=== PATIENT | female | born 1955 | race Caucasian/White ===

== ENCOUNTER → 2020-12-23 12:34 | Outpatient (CLI) | payer OTHER, BC, SELFPAY ==
--- NOTE | ~2020-12-23 | MM_ITS ---
EXAMINATION: MM screening tonny BI w ema HISTORY: Screening mammogram TECHNIQUE: Craniocaudal and mediolateral oblique 3-D tomosynthesis images were obtained and synthetic 2-D images were generated. CAD analysis was submitted and interpreted. COMPARISON: 08/07/2005 bilateral digital screening mammogram BREAST PARENCHYMAL COMPOSITION: There are scattered areas of fibroglandular density. FINDINGS: There is no evidence of suspicious mass, calcification, or architectural distortion to sugg est malignancy in either breast. There has been no suspicious interval change. IMPRESSION: 1. No mammographic evidence of malignancy. 2. Recommend routine screening mammography in one year. BI-RADS Category 1: Negative Reviewed, dictated and finalized at location A.
== END ==
PROVIDERS: PCP Internal Medicine; Visit Provider Obstetrics & Gynecology
DX: Z12.31 Encounter for screening mammogram for malignant neoplasm of breast (principal)
CPT/HCPCS: 77063; 77067

== ENCOUNTER 2021-07-29 18:56 | Emergency (ER) | payer OTHER, BC, SELFPAY ==
--- NOTE | ~2021-07-29 | CT_ITS ---
EXAMINATION: CT abdomen pelvis w con DATE: 07/30/2021 00:31 INDICATION: Lower abdominal pain. Lightheadedness. TECHNIQUE: Computed tomography (CT) of the abdomen and pelvis was performed without intravenous contr ast. The dose-length product was 270.98 mGy-cm. Automated exposure control and iterative reconstructi on technique were employed. COMPARISON: None. FINDINGS: Lung bases are unremarkable. There is a small hiatal hernia with mild thickening of the dis luli esophagus. Fatty infiltration of the liver. There is mild thickening of the distal ileum and cecu m. The liver, spleen, pancreas, adrenal glands and kidneys are unremarkable. Gallbladder is present. Bladder is unremarkable. Nonobstructive bowel gas pattern. No significant vascular abnormality. No ly mphadenopathy. No free air or free fluid. Status post hysterectomy. Normal appendix. IMPRESSION: 1. Mild thickening of the terminal ileum and proximal colon, suspicious for enterocolitis which may b e infectious or inflammatory. 2: Small hiatal hernia with thickening of the distal esophagus, suspicious for esophagitis, possibly secondary to reflux. Reviewed, dictated and finalized at location B. 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 Mild thickening of the terminal ileum and proximal colon, suspicious for ent erocolitis which may be infectious or inflammatory. 2: Small hiatal hernia with thickening of the distal esophagus, suspicious for esophagitis, possibly secondary to reflux.
[2021-07-29 19:02] VITALS: BP 127/73; PULSE 115; RESP 20; TEMP 37.1; O2SAT 99
[2021-07-29] MEDS: ONDANSETRON INJ 4 MG/2 ML VIAL IV PUSH (23:32)
[2021-07-29] MEDS: SODIUM CHLORIDE 0.9% IV 1,000 ML 999 ML IV CONT (23:32)
[2021-07-29 23:41] LABS: Basophils Percent Auto 0.2 % (0.2-1.2); Hematocrit 39.2 % (37.0-47.0); Immature Granulocyte Absolute 0.03 K/mm3 (0.00-0.031); Immature Granulocyte Percent A 0.3 % (0-0.5); Lymphocytes Absolute Auto 0.44 K/mm3 (0.9-3.2); Mean Corpuscular HGB Conc 33.2 g/dl (32-36); Mean Corpuscular Hemoglobin 30.5 pg (26-34); Mean Platelet Volume 10.6 fl (7.4-10.4); Monocytes Absolute Auto 0.3 K/mm3 (0.1-0.6); Monocytes Percent Auto 3.4 % (2.6-8.5); Neutrophils Percent Auto 91.1 % (45.5-73.1); Platelet Count Result 160 k/mm3 (150-375); Red Blood Count 4.26 M/mm3 (4.2-5.4); Red Cell Distribution Width 14.2 % (11.5-14.5); White Blood Count 8.8 K/mm3 (4.5-10.0)
[2021-07-29 23:53] LABS: Alanine Aminotransferase 25 U/L (4-35); Albumin Level 4.2 g/dL (3.5-5.1); Alkaline Phosphatase 64 U/L (38-126); Anion Gap 12 mmol/L (8-16); Aspartate Amino Transferase 26 U/L (14-36); Bilirubin,Total 0.8 mg/dL (0.2-1.3); Blood Urea Nitrogen 18 mg/dL (7-17); Calcium 9.3 mg/dL (8.4-10.2); Carbon Dioxide 23 mmol/L (22-30); Chloride 101 mmol/L (98-107); Estimated CRCL calculation 65 ml/min; Estimated Glomerular Filt Rate > 60; Glucose 118 mg/dL (65-110); Lactic Acid Reflex 1.1 mmol/L (0.7-2.1); Lipase 28 U/L (23-300); Magnesium 1.8 mg/dL (1.6-2.3); Potassium 3.4 mmol/L (3.4-5.0); Sodium 136 mmol/L (137-145)
--- NOTE | 2021-07-30 00:46 | ED.GENADULT ---
HPI - General Adult General Chief complaint: Nausea/Vomiting/Diarrhea Stated complaint: Vomiting,diarrhea,Low Bp Time Seen by Provider: 07/29/21 23:10 History of Present Illness HPI narrative: Patient is a 65-year-old female presents to emergency department with chief complaint of nausea and vomiting and diarrhea. Patient states that she is feeling lightheaded has had several episodes of nausea and vomiting reports that she was unable to keep fluids down. Patient states that she also is feeling lightheaded with this. Patient states that she has some discomfort throughout her abdomen reports that its not improved by anything and reports that its not worsened by any. Related Data Home Medications Medication Instructions Recorded Confirmed aspirin 81 mg tablet,delayed 81 mg PO DAILY 12/12/19 06/23/21 release cetirizine 10 mg tablet 10 mg PO DAILY 12/12/19 06/23/21 fluticasone propionate 50 1 spray NASAL DAILY 12/12/19 06/23/21 mcg/actuation nasal spray,suspension olopatadine 0.6 % nasal spray 2 spray NASAL BID 12/12/19 06/23/21 omega 4-rai-bgc-fish oil 60 mg-90 1 cap PO DAILY 08/18/20 06/23/21 mg-500 mg capsule calcium 600 mg-D3 800 unit-mag11 1 tablet PO DAILY 12/15/20 06/23/21 50 lq-ygzp-lbdplk-daniel-s.borat tablet carboxymethylcellulose 1 1 drp EACH EYE BID 12/15/20 06/23/21 %-glycerin 0.9 % eye gel drops cholecalciferol (vitamin D3) 50 50 mcg PO DAILY 12/15/20 06/23/21 mcg (2,000 unit) capsule eye lubricant combination no.1 2 drp OPHTHALMIC (EYE) 12/15/20 06/23/21 %-0.9 %-1.8 % drops lifitegrast 5 % eye drops in a 1 drp EACH EYE Q12H 12/15/20 06/23/21 dropperette metronidazole 1 % topical cream 1 applic TOPICAL DAILY 12/15/20 06/23/21 triamcinolone acetonide 0.1 % 1 applic TOPICAL BID 12/15/20 06/23/21 topical cream vit cap PO 06/23/21 06/23/21 C,E,zinc,Ry-tgvqr-5-lutein-zeaxanthin 250 mg-2.5 mg-0.5 mg capsule Allergies Allergy/AdvReac Type Severity Reaction Status Date / Time Penicillins Allergy Severe Vomiting Verified 06/23/21 10:57 Review of Systems Review of Systems: A 10 system review of systems was completed on the patient and is negative except for what is stated in the HPI. Nursing and ancillary documentation was reviewed. PMFSH Past Medical History Medical History Cataract History of miscarriage Hyperlipidemia Optic neuritis Porphyria Thrombocytopenia Surgical History Surgical History H/O dilation and curettage X5 H/O: hysterectomy History of colposcopy Family History Family History Father Cerebrovascular accident Sibling Cerebrovascular accident Mother Acute myocardial infarction Other Hypertension Social History Social History Smoking packs per day: 0.5 Smoking cigarettes per day: 10.0 Years smoked: 4 Smoking pack-years: 2.00 Smoking status: Former smoker Tobacco type: cigarettes Second hand tobacco smoke exposure: No Smoking end date: 08/18/78 Alcohol intake: current Alcohol use details: Social Substance use: never Substance use type: does not use Exam Narrative: GENERAL: Well-appearing, well-nourished, and in no acute distress. HEAD: Normocephalic, atraumatic. EYES: PERRLA and EOMI. ENT: Nares clear, no rhinorrhea or epistaxis. Mucous membranes moist. NECK: Supple. CHEST: Clear to auscultation. No respiratory distress. HEART: Regular rate and rhythm. No murmur heard. Normal peripheral pulses. ABDOMEN: Soft, nontender, nondistended, normal active bowel sounds. EXTREMITIES: Normal range of motion. No edema. SKIN: Warm, dry, no rash. NEURO: No focal deficits. Alert and oriented x3. PSYCH: Normal mood and affect. Course Vital Signs Vital signs: Vital
[2021-07-30 01:00] VITALS: BP 113/59; PULSE 98; RESP 16; O2SAT 98
[2021-07-30 01:27] LABS: Add Urine Microscopic? YES; Appearance Urine Clear (Clear); Bacteria Urine Trace /hpf; Bilirubin Urine Negative (Negative); Blood Urine Negative (Negative); Color Urine Yellow (Yellow); Glucose Urine UA Negative (Negative); Ketones Urine 1+ mg/dL (Negative); Leukocyte Esterase Ur Negative LEU/UL (Negative); Mucus Urine Few /lpf; Nitrate Urine Negative (Negative); Protein Urine Negative (Negative); Squamous Epithelial Cell Urine Rare /hpf (Few); Urobilinogen Urine Negative mg/dL (<2.0); WBC Urine 0-3 /hpf
[2021-07-30 01:35] LABS: Specific Grav Ur 1.058 (1.001-1.035)
[2021-07-30] MEDS: CIPROFLOXACIN 500 MG TAB PO (02:40)
[2021-07-30] MEDS: metroNIDAZOLE 250 MG TABLET 500 MG PO (02:40)
[2021-07-30 02:56] VITALS: BP 121/62; PULSE 75; RESP 16; O2SAT 100
== END 2021-07-30 02:57 | disposition home or self-care (01) ==
PROVIDERS: Emergency Provider Emergency Medicine; PCP Internal Medicine
DX: E78.5 Hyperlipidemia, unspecified (principal); E80.20 Unspecified porphyria; Z87.891 Personal history of nicotine dependence; Z79.82 Long term (current) use of aspirin; K52.9 Noninfective gastroenteritis and colitis, unspecified
CPT/HCPCS: 36415; 74177; 80053; 81001; 83605; 83690; 83735; 85025; 96361; 96374; 99284; A9270; J2405; J7030; Q9967

== ENCOUNTER 2021-09-17 00:46 | Day surgery (SDC) | payer OTHER, BC, SELFPAY ==
[2021-09-02 15:11] VITALS: BMI 25.4
[2021-09-17 06:28] VITALS: BP 136/72; PULSE 72; RESP 18; TEMP 36.1; O2SAT 99; BMI 25.3
[2021-09-17] MEDS: LACTATED RINGERS 1,000 ML 150 ML IV CONT (06:37)
--- NOTE | 2021-09-17 07:22 | WPDGICN ---
Assessment and Plan Assessment and plan (1) Encounter for screening colonoscopy: Code(s): Z12.11 - Encounter for screening for malignant neoplasm of colon Status: Acute Assessment and Plan: Patient presents today for screening colonoscopy. Appears to be at average risk for colon polyps. Further recommendations will be given after colonoscopy. GI Consult Note Consult date/time: 09/17/21 07:22 HPI: Zainab Stone is a 65 year old female Presents for neoplasia screening colonoscopy. Patient's current weight appetite and bowel movements are normal. She denies abdominal pain. She has had no bleeding. Family history noncontributory. Last colonoscopy 12 years ago was unremarkable. Patient does report gastroenteritis requiring ER visit in June. She has subsequently with resolved. She presents today for neoplasia screening colonoscopy. Review of Systems Review of Systems: All systems reviewed & are unremarkable except as noted in HPI and below PMFSH Past Medical History Medical History Cataract Essential (primary) hypertension Gastroesophageal reflux disease History of miscarriage x5 Hyperlipidemia Hypothyroidism (acquired) Hypothyroidism, unspecified Intermittent acute porphyria syndrome Optic neuritis Osteopenia Rosacea Thrombocytopenia Vaginal delivery x1 Surgical History Surgical History H/O dilation and curettage X5 H/O: hysterectomy 12/09/15 History of colposcopy History of eye surgery 2019, for cataracts Family History Family History Father Cerebrovascular accident Sibling Cerebrovascular accident Mother Acute myocardial infarction Other Hypertension Social History Social History Smoking packs per day: 1 Smoking cigarettes per day: 20.0 Years smoked: 4 Smoking pack-years: 4.00 Smoking status: Former smoker Tobacco type: cigarettes Second hand tobacco smoke exposure: No Smoking end date: 08/18/78 Alcohol intake: current Drinks per week: 1 Alcohol use details: Social Substance use: never Substance use type: does not use Living arrangements: alone Spiritual care concerns: No Meds Home Medications and Allergies Home Medications Medication Instructions Recorded Confirmed Type aspirin 81 mg tablet,delayed 81 mg PO DAILY 12/12/19 09/02/21 History release cetirizine 10 mg tablet 10 mg PO DAILY 12/12/19 09/02/21 History fluticasone propionate 50 1 spray NASAL BID 12/12/19 09/02/21 History mcg/actuation nasal spray,suspension olopatadine 0.6 % nasal spray 2 spray NASAL BID 12/12/19 09/02/21 History omega 3-dsb-jwc-fish oil 60 mg-90 1 cap PO DAILY 08/18/20 09/02/21 History mg-500 mg capsule calcium 600 mg-D3 800 unit-mag11 2 tablet PO DAILY 12/15/20 09/02/21 History 50 wt-kvfy-yfwsaq-daniel-s.borat tablet cholecalciferol (vitamin D3) 50 50 mcg PO DAILY 12/15/20 09/02/21 History mcg (2,000 unit) capsule metronidazole 1 % topical cream 1 applic TOPICAL DAILY 12/15/20 09/02/21 History triamcinolone acetonide 0.1 % 1 applic TOPICAL BID 12/15/20 09/02/21 History topical cream atorvastatin 40 mg tablet See Rx Instructions .ROUTE 05/14/21 09/02/21 Rx .COMPLEX #90 tablet levothyroxine 100 mcg tablet See Rx Instructions .ROUTE 05/14/21 09/02/21 Rx .COMPLEX #90 tablet lisinopril 20 mg tablet See Rx Instructions .ROUTE 05/14/21 09/02/21 Rx .COMPLEX #90 tablet vit C 250 mg-vit E 90 mg-zinc 40 1 tablet PO BID 08/31/21 09/02/21 History mg-copper 1 qv-dzqpad-zwpbrf capsule carboxymethylcellulose sodium 1 drp EACH EYE DAILY 09/02/21 09/02/21 History [Refresh Celluvisc] carboxymethylcellulose-glycern 1 drp EACH EYE BID 09/02/21 09/02/21 History [Refre
[2021-09-17 07:45] VITALS: BP 92/48; PULSE 73; RESP 13; O2SAT 100
[2021-09-17 07:55] VITALS: BP 109/73; PULSE 61; RESP 22; O2SAT 99
[2021-09-17 08:05] VITALS: BP 133/84; PULSE 59; RESP 13; O2SAT 99
== END 2021-09-17 08:24 | disposition home or self-care (01) ==
PROVIDERS: PCP Internal Medicine; Visit Provider Internal Medicine Gastroenterology
PROC: 0DJD8ZZ Inspection of Lower Intestinal Tract, Via Natural or Artificial Opening Endoscopic (ICD-10-PCS; CPT 45378; principal; 2021-09-17 07:30)
DX: Z12.11 Encounter for screening for malignant neoplasm of colon (principal); I10 Essential (primary) hypertension; K21.9 Gastro-esophageal reflux disease without esophagitis; E78.5 Hyperlipidemia, unspecified; E03.9 Hypothyroidism, unspecified; E80.21 Acute intermittent (hepatic) porphyria; H46.9 Unspecified optic neuritis; M85.80 Other specified disorders of bone density and structure, unspecified site; Z87.891 Personal history of nicotine dependence; Z79.82 Long term (current) use of aspirin
CPT/HCPCS: 45378; J2704; J7120

== ENCOUNTER 2021-10-13 00:26 | Day surgery (SDC) | payer OTHER, BC, SELFPAY ==
[2021-09-28 16:05] VITALS: BMI 24.5
[2021-10-13 08:11] VITALS: BP 149/73; PULSE 92; RESP 20; TEMP 37; O2SAT 100; BMI 24.5
[2021-10-13] MEDS: LACTATED RINGERS 1,000 ML 150 ML IV CONT (08:21)
--- NOTE | 2021-10-13 08:23 | WPDHPUPDATE1 ---
History and Physical Update Update Date/Time: 10/13/21 08:23 History and Physical has been reviewed, including an updated exam of the patient. There are NO changes in the patient's condition. Risks, benefits, and alternatives have been discussed and questions answered. Patient agrees to proceed with procedure.
--- NOTE | 2021-10-13 09:10 | WPDANESEPPF ---
Anes - Initial Pre Proc Eval Procedure: Operation Date: 10/13/21 09:30 Proposed Procedures p Screening Colonoscopy - William Chapman MD Date/Time: 10/13/21 09:10 Surgeon: William Chapman MD Pre Op Diagnosis: neoplasm screening Patient Data Age: 65 Gender: F Height: 1.57 m Weight: 60.8 kg Last Vital Signs Temp 98.6 F 10/13/21 08:11 Pulse 92 10/13/21 08:11 Resp 20 10/13/21 08:11 BP 149/73 H 10/13/21 08:11 Pulse Ox 100 10/13/21 08:11 Allergies Allergy/AdvReac Type Severity Reaction Status Date / Time Penicillins Allergy Severe Vomiting Verified 10/13/21 08:10 Home Medications Medication Instructions Recorded Confirmed Type aspirin 81 mg tablet,delayed 81 mg PO DAILY 12/12/19 09/28/21 History release cetirizine 10 mg tablet 10 mg PO DAILY 12/12/19 09/28/21 History fluticasone propionate 50 2 spray NASAL DAILY 12/12/19 09/28/21 History mcg/actuation nasal spray,suspension olopatadine 0.6 % nasal spray 2 spray NASAL BID 12/12/19 09/28/21 History omega 6-nxs-rax-fish oil 60 mg-90 1 cap PO DAILY 08/18/20 09/28/21 History mg-500 mg capsule calcium 600 mg-D3 800 unit-mag11 2 tablet PO DAILY 12/15/20 09/28/21 History 50 ub-qnco-zrsssc-daniel-s.borat tablet cholecalciferol (vitamin D3) 50 50 mcg PO DAILY 12/15/20 09/28/21 History mcg (2,000 unit) capsule metronidazole 1 % topical cream 1 applic TOPICAL DAILY 12/15/20 09/28/21 History triamcinolone acetonide 0.1 % 1 applic TOPICAL BID 12/15/20 09/28/21 History topical cream vit C 250 mg-vit E 90 mg-zinc 40 1 tablet PO BID 08/31/21 09/28/21 History mg-copper 1 uq-wqxlil-dnyflw capsule carboxymethylcellulose-glycern 1 drp EACH EYE BID 09/02/21 09/28/21 History [Refresh Optive] lifitegrast [Xiidra] 1 drp EACH EYE BID 09/02/21 09/28/21 History atorvastatin 40 mg PO DAILY 09/28/21 09/28/21 History levothyroxine [Synthroid] 100 mcg PO DAILY 09/28/21 09/28/21 History lisinopril 20 mg PO DAILY 09/28/21 09/28/21 History Patient hx anesthesia problems: none Family hx anesthesia problems: none Results Review: All pre-operative results and documents have been reviewed as part of the pre-operative evaluation. [facility] Past Medical History Medical History Cataract Essential (primary) hypertension Gastroesophageal reflux disease History of miscarriage x5 Hyperlipidemia Hypothyroidism (acquired) Hypothyroidism, unspecified Intermittent acute porphyria syndrome Optic neuritis Osteopenia Rosacea Thrombocytopenia Vaginal delivery x1 Surgical History Surgical History H/O dilation and curettage X5 H/O: hysterectomy 12/09/15 History of colposcopy History of eye surgery 2019, for cataracts Family History Family History Father Cerebrovascular accident Sibling Cerebrovascular accident Mother Acute myocardial infarction Other Hypertension Social History Social History Smoking packs per day: 1 Smoking cigarettes per day: 20.0 Years smoked: 4 Smoking pack-years: 4.00 Smoking status: Former smoker Tobacco type: cigarettes Second hand tobacco smoke exposure: No Smoking end date: 08/18/78 Alcohol intake: current Drinks per week: 1 Alcohol use details: 2-3X yearly Substance use: never Substance use type: does not use Living arrangements: with family Spiritual care concerns: No Anes - Eval Final PreProcedure Day of Procedure 10/13/21 09:10 Patient weight: normal Heart: regular rate and rhythm Lungs: clear to auscultation Airway: Mallampati scale class II Neurological: alert and oriented Last oral intake: >/= 8 hours ASA classification: II Emergent: no Anesthetic plan: proceed Anesthesia type and monitoring: ge
[2021-10-13 09:41] VITALS: BP 105/64; PULSE 80; RESP 16; O2SAT 100
[2021-10-13 09:51] VITALS: BP 116/69; PULSE 75; RESP 22; O2SAT 100
[2021-10-13 10:01] VITALS: BP 140/87; PULSE 77; RESP 24; O2SAT 100
== END 2021-10-13 10:05 | disposition home or self-care (01) ==
PROVIDERS: PCP Internal Medicine; Visit Provider Internal Medicine Gastroenterology
PROC: 0DJD8ZZ Inspection of Lower Intestinal Tract, Via Natural or Artificial Opening Endoscopic (ICD-10-PCS; CPT 45378; principal; 2021-10-13 09:30)
DX: Z12.11 Encounter for screening for malignant neoplasm of colon (principal); I10 Essential (primary) hypertension; K21.9 Gastro-esophageal reflux disease without esophagitis; E78.5 Hyperlipidemia, unspecified; E03.9 Hypothyroidism, unspecified; E80.21 Acute intermittent (hepatic) porphyria; M19.90 Unspecified osteoarthritis, unspecified site; L71.9 Rosacea, unspecified; D69.6 Thrombocytopenia, unspecified; Z87.891 Personal history of nicotine dependence; Z79.82 Long term (current) use of aspirin
CPT/HCPCS: 45378; J2704; J7120

== ENCOUNTER → 2021-12-28 15:01 | Outpatient (CLI) | payer OTHER, SELFPAY ==
--- NOTE | ~2021-12-28 | MM_ITS ---
EXAMINATION: MM screening tonny BI w ema HISTORY: Screening mammogram TECHNIQUE: Craniocaudal and mediolateral oblique 3-D tomosynthesis images were obtained and synthetic 2-D images were generated. CAD analysis was submitted and interpreted. COMPARISON: bilateral screening mammogram BREAST PARENCHYMAL COMPOSITION: There are scattered areas of fibroglandular density. FINDINGS: There is no evidence of suspicious mass, calcification, or architectural distortion to sugg est malignancy in either breast. There has been no suspicious interval change. IMPRESSION: 1. No mammographic evidence of malignancy. 2. Recommend routine screening mammography in one year. BI-RADS Category 1: Negative Reviewed, dictated and finalized at location A.
== END ==
PROVIDERS: PCP Internal Medicine; Visit Provider Student in an Organized Health Care Education/Training Program
DX: Z12.31 Encounter for screening mammogram for malignant neoplasm of breast (principal)
CPT/HCPCS: 77063; 77067

== ENCOUNTER 2022-02-08 09:41 | Outpatient (CLI) | payer OTHER, SELFPAY ==
--- NOTE | ~2022-02-08 | DEXA_ITS ---
Bone Density Report Name: TOSHA PARK Age: 66 Sex: Female Ethnicity: White Date of : 1955 Indication: postmenopausal; screening for osteoporosis; hysterectomy; Referring Provider: JOLEEN MORALES Study: Bone densitometry was performed. Exam Date: February 08, 2022 Accession number: [id number] Bone Density: Region BMD T-score Z-score Classification AP Spine(L1-L4) 0.960 -0.8 0.9 Normal Femoral Neck (Left) 0.669 -1.6 -0.2 Osteopenia Total Hip (Left) 0.815 -1.0 0.1 Normal Femoral Neck (Right) 0.663 -1.7 -0.2 Osteopenia Total Hip (Right) 0.844 -0.8 0.4 Normal Total Hip Mean 0.830 -0.9 0.3 Normal World Health Organization criteria for BMD impression classify patients as: Normal (T-score at or above -1.0), Osteopenia (T-score between -1.0 and -2.5), or Osteoporosis (T-score at or below -2.5). 10-year Fracture Risk(1): Major Osteoporotic Fracture 9.2% Hip Fracture 1.0% Reported Risk Factors: [place] (), Neck BMD=0.669, BMI=24.7 (1) FRAX(R) Version 3.08. Fracture probability calculated for an untreated patient. Fracture probability may be lower if the patient has received treatment. Clinical Information Provided by Patient: Has used the following medications: Vitamin D, Calcium Has the following medical conditions: Hysterectomy Patient maximum height was 62 Menopause Age: 60 Drinks caffeinated beverages Onset of menses at age 17 Number of children 1 Impression: The patient has low bone mass, based on the Right Femoral Neck T-score. The patient has an estimated ten-year risk of hip fracture of 1% and an estimated ten-year risk of major fracture of 9.2%, based on the WHO FRAX algorithm. Discussion: BONE DENSITY IS LOW AT ONE OR MORE SKELETAL SITES. This patient's lowest T-score is low at one or more skeletal sites. It meets the World Health Organization's (WHO) criteria for ?low bone mass? (T-score between -1.0 and -2.5). The patient's 10-year risk of fracture as calculated by FRAX is less than the threshold where pharmacological therapy is recommended by the National Osteoporosis Foundation (NOF). However, all treatment decisions require clinical judgment and consideration of individual patient factors, including patient preferences, comorbidities, previous drug use, risk factors not captured in the FRAX model (e.g., frailty, falls, vitamin D deficiency, increased bone turnover, interval significant decline in bone density) and possible under or overestimation of fracture risk by FRAX. The patient should follow a healthful lifestyle (good nutrition with adequate calcium and vitamin D, and appropriate weight-bearing exercise). Follow-Up: Consider repeating this study in 2 to 3 years to reassess this patient's status, or sooner if there is some new clinical indication.
== END 2022-02-08 09:42 | disposition home or self-care (01) ==
PROVIDERS: PCP Internal Medicine; Visit Provider Internal Medicine
DX: M85.852 Other specified disorders of bone density and structure, left thigh (principal); M85.851 Other specified disorders of bone density and structure, right thigh
CPT/HCPCS: 77080

== ENCOUNTER 2022-03-11 10:07 | Outpatient (CLI) | payer OTHER, SELFPAY ==
--- NOTE | 2022-03-11 | ECG_ITS ---
Measurements Intervals [place] Rate: 73 P: 71 FL: 168 QRS: 16 QRSD: 87 T: 40 QT: 389 QTc: 430 Interpretive Statements SINUS RHYTHM NORMAL ECG Electronically Signed On 03-11-2022 12:15:49 CDT by Rk Hunter D.O.
[2022-03-11 11:19] LABS: Anion Gap 5 mmol/L (8-16); Blood Urea Nitrogen 14 mg/dL (7-17); Calcium 9.4 mg/dL (8.4-10.2); Carbon Dioxide 27 mmol/L (22-30); Chloride 107 mmol/L (98-107); Estimated Glomerular Filt Rate > 60; Glucose 111 mg/dL (65-110); Potassium 4.2 mmol/L (3.4-5.0); Sodium 139 mmol/L (137-145)
== END 2022-03-11 10:08 | disposition home or self-care (01) ==
LOC: ANHLAB 10:09
PROVIDERS: PCP Internal Medicine; Visit Provider Orthopaedic Surgery
DX: Z01.818 Encounter for other preprocedural examination (principal)
CPT/HCPCS: 36415; 80048; 93005

== ENCOUNTER 2023-02-11 09:58 | Outpatient (CLI) | payer MEDICARE, SELFPAY ==
[2023-02-11 12:41] LABS: Basophils Percent Auto 0.7 % (0.2-1.2); Eosinophils Absolute Auto 0.1 K/mm3 (0-0.3); Eosinophils Percent Auto 1.7 % (0-4.4); Hematocrit 41.7 % (37.0-47.0); Hemoglobin 13.2 g/dL (12.0-15.0); Immature Granulocyte Absolute 0.02 K/mm3 (0.00-0.031); Immature Granulocyte Percent A 0.3 % (0-0.5); Lymphocytes Absolute Auto 1.53 K/mm3 (0.9-3.2); Lymphocytes Percent Auto 26.2 % (18.3-44.2); Mean Corpuscular HGB Conc 31.7 g/dl (32-36); Mean Corpuscular Hemoglobin 30.4 pg (26-34); Mean Corpuscular Volume 96.1 fl (80-100); Mean Platelet Volume 12.3 fl (7.4-10.4); Monocytes Absolute Auto 0.6 K/mm3 (0.1-0.6); Monocytes Percent Auto 9.6 % (2.6-8.5); Neutrophils Absolute Auto 3.6 K/mm3 (1.3-6.7); Neutrophils Percent Auto 61.5 % (45.5-73.1); Platelet Count Result 228 k/mm3 (150-375); Red Blood Count 4.34 M/mm3 (4.2-5.4); White Blood Count 5.9 K/mm3 (4.5-10.0)
[2023-02-11 12:52] LABS: Albumin Level 4.5 g/dL (3.5-5.1); Estimated Glomerular Filt Rate > 60; Glucose 85 mg/dL (65-110)
[2023-02-11 13:32] LABS: Urine Cotinine NEGATIVE
[2023-02-11 13:44] LABS: Hemoglobin A1C 5.7 % (<5.7)
== END 2023-02-11 09:59 | disposition home or self-care (01) ==
PROVIDERS: PCP Family Medicine; Visit Provider Orthopaedic Surgery
DX: M17.12 Unilateral primary osteoarthritis, left knee (principal); Z01.818 Encounter for other preprocedural examination
CPT/HCPCS: 80307; 82040; 82565; 82947; 83036; 85025; 86850; 86900; 86901; 87081

== ENCOUNTER 2023-02-23 02:00 | Day surgery (SDC) | payer MEDICARE, SELFPAY ==
[2023-02-11 10:22] VITALS: BP 138/78; PULSE 67; RESP 16; TEMP 36.9; O2SAT 100; BMI 25.0
--- NOTE | 2023-02-11 10:38 | PC.NURSE ---
Addendum entered by Prabha Tello RN 02/11/23 10:48: LAST DOSE VITAMINS/SUPPLEMENT--02/19/23. PT RELAYS UNDERSTANDING. Original Note: Report to the Outpatient Waiting Room, entrance under the green pavilion located off [facility], at time __6:00AM on date __02/23/23 . Planned Procedure Time: __7:30AM . Time changes happen often and if your time is changed the preop area will call you the afternoon before. - You and your visitor will be asked to self-screen and do not enter if you have any COVID symptoms. - A mask is optional within the hospital at this time. Patients may have clear liquids (water, carbonated beverages, clear teas, apple juice) until 3 hours prior to surgery with a maximum of 20 ounces. - No food from midnight until time of surgery Take the following medications with a SIP of water the morning of surgery: ___LEVOTHYROXINE, EYE DROPS, NASAL SPRAY DO NOT STOP ANY OF YOUR OTHER PRESCRIPTION MEDICATIONS PRIOR TO SURGERY ?EXCEPT THE FOLLOWING Medications to discontinue per physician __HOLD ALL VITAMINS/SUPPLEMENTS 3 DAYS PRE-OP PER ANESTHESIA Date to take last dose 02/02/23 Please no make-up, nail tunisian, hairspray, perfume, deodorant, or body powder the day of surgery. No jewelry (including any body piercings) or valuables the day of surgery, leave them at home. Please take a shower or bath the night before, or the morning of, surgery with an antibacterial soap. Wear comfortable, loose fitting clothing. Children are encouraged to wear pajamas. - Jewelry must be removed prior to entering the operating room. Rings and piercings that are not removed may be cut off. - The hospital will not accept responsibility for valuables. - Please leave all valuables, including medications, at home the day of surgery. If you are going home after surgery, a licensed test driver must drive you home. - NO public transportation without another adult if you receive anesthesia. - We recommend that an adult stay with you for 24 hours following discharge. - We also recommend that you do not drive, make important decision, drink alcoholic beverages, or take any drugs that were not prescribed by your health care provider for at least 24 hours after your discharge time. Follow any additional instructions given to you from your surgeon. If you or anyone in your household have experienced Covid symptoms in the past week, please notify your surgeon or the nurse liaison at the phone number below for possible testing. Telephone instructions given to _PATIENT and asked if any additional questions and then verbalized understanding. Patient advised to call surgeon office or pre surgery nurse liaison [phone] if any additional questions.
--- NOTE | 2023-02-17 14:27 | PM.IMHP ---
H&P: HPI History of Present Illness Date/Time: 02/17/23 14:27 Chief Complaint: The patient is a 67-year-old female who sees Dr. Valverde regarding her left knee. The patient has a chronic ongoing history of pain localized to both knees she has severe primary osteoarthritis. The patient has grinding crepitation pain limitation of function and motion cannot stand or walk for long periods has trouble squatting kneeling going up and down stairs she has started pain rest pain and night pain despite conservative measures including cortisone therapy and anti-inflammatory symptoms continue. X-rays confirmed advanced primary osteoarthritis which was bone on bone patient has failed conservative measures and discuss further treatment options in detail with Dr. Valverde she would not proceed with a left total knee arthroplasty. Review of Systems Review of Systems: Ten point review of systems otherwise negative [facility] Past Medical History Medical History Cataract Essential (primary) hypertension Gastroesophageal reflux disease History of miscarriage x5 Hyperlipidemia Hypothyroidism (acquired) Hypothyroidism, unspecified Intermittent acute porphyria syndrome Optic neuritis Osteopenia Rosacea Thrombocytopenia Vaginal delivery x1 Surgical History Surgical History H/O dilation and curettage X5 H/O: hysterectomy 12/09/15 History of colposcopy History of eye surgery 2019, for cataracts Family History Family History Father Cerebrovascular accident Sibling Cerebrovascular accident Mother Acute myocardial infarction Other Hypertension Social History Social History Social History: Smoking packs per day: 1 Smoking cigarettes per day: 20.0 Years smoked: 3 Smoking pack-years: 3.00 Smoking status: Former smoker Tobacco type: cigarettes Second hand tobacco smoke exposure: No Smoking end date: 02/26/78 Alcohol intake: current Alcohol use details: Rarely.....mostly Holidays Substance use: never Substance use type: does not use Lack of Transportation: No Lack of Food: Never True Current Housing: I Have Housing Concerned About Future Housing: No Difficulty Paying Gas/Electric Bills: No Difficulty Paying for Meds: No Currently Unemployed: YES Education: Decline to Answer Difficulty w/ Childcare or Family Care: No Living arrangements: with family Additional living arrangements comments: [facility] Occupation/Education: retired Gender identity (if verbalized by the patient): Female Sexual Orientation (if Verbalized by the Patient): Straight or Heterosexual Spiritual care concerns: No Meds Home Medications and Allergies Home Medications Medication Instructions Recorded Confirmed Type cetirizine 10 mg tablet 10 mg PO DAILY 12/12/19 02/11/23 History fluticasone propionate 50 2 spray intranasal BID 12/12/19 02/11/23 History mcg/actuation nasal spray,suspension omega 4-nyz-wqt-fish oil 60 mg-90 1,500 cap PO DAILY 08/18/20 02/11/23 History mg-500 mg capsule (Fish Oil) calcium 600 mg-D3 800 unit-mag11 2 tablet PO DAILY 12/15/20 02/11/23 History 50 mo-agsz-pwnwia-daniel-s.borat tablet (Caltrate 600-D Plus Minerals) cholecalciferol (vitamin D3) 50 50 mcg PO DAILY 12/15/20 02/11/23 History mcg (2,000 unit) capsule vit C 250 mg-vit E 90 mg-zinc 40 1 tablet PO BID 08/31/21 02/11/23 History mg-copper 1 oa-mfjjtq-wxhysz capsule (PreserVision AREDS-2) lifitegrast 5 % eye drops in a 1 drp EACH EYE BID 09/02/21 02/11/23 History dropperette (Xiidra) alendronate 70 mg tablet 70 mg PO WEEKLY #14 tabs 12/22/22 02/11/23 Rx atorvastatin 40 mg tablet 40 mg PO DAILY #100 tabs 01/07/23 02/11/23 Rx levothyroxine 75 mcg tablet 75 mcg PO QA 06
[2023-02-23] VITALS (16 sets, daily range): BP systolic 122–153; BP diastolic 60–80; PULSE 62–86; RESP 12–18; TEMP 36.1–37.3; O2SAT 99–100
--- NOTE | ~2023-02-23 | XR_ITS ---
EXAMINATION: [id number] DATE: 02/23/2023 10:07 INDICATION: Postoperative evaluation following left total knee arthroplasty. TECHNIQUE: Anteroposterior and lateral views of the left knee were obtained. COMPARISON: None. FINDINGS: Left total knee arthroplasty with patellar resurfacing appears well seated and in near anatomic align ment. 6 degree varus tilt of the tibial component relative to the tibial axis. No fractures identifie d. Skin isadora and expected postoperative subcutaneous, intramedullary and intra-articular gas. IMPRESSION: 1. Left total knee arthroplasty, negative for postoperative purposes. Reviewed, dictated and finalized at location A.
[2023-02-23] MEDS: LACTATED RINGERS 1,000 ML 30 ML IV CONT ×2 (06:24→09:44)
[2023-02-23] MEDS: VANCOMYCIN 1,000 MG/NS 250 ML BAG 250 MG IVPB (06:26)
[2023-02-23] MEDS: TRANEXAMIC ACID 1,000MG/ISO100 1,000 MG/100 ML BAG 200 MG IVPB (06:26)
[2023-02-23] MEDS: ACETAMINOPHEN 500 MG TABLET 1000 MG PO (06:26)
--- NOTE | 2023-02-23 06:35 | WPDANESEPPF ---
Anes - Initial Pre Proc Eval Procedure: Operation Date: 02/23/23 07:30 Proposed Procedures p Left Total Knee Arthroplasty - Cesar Valverde MD Date/Time: 02/23/23 06:35 Surgeon: Cesar Valverde MD Pre Op Diagnosis: oa left knee Patient Data Age: 67 Gender: F Height: 1.57 m Weight: 61.6 kg Last Vital Signs Temp 36.9 C 02/11/23 10:22 Pulse 67 02/11/23 10:22 Resp 16 02/11/23 10:22 BP 138/78 02/11/23 10:22 Pulse Ox 100 02/11/23 10:22 O2 Del Method Room Air 02/11/23 10:22 Allergies Allergy/AdvReac Type Severity Reaction Status Date / Time diclofenac Allergy ELEVATED Verified 02/23/23 06:27 BP, RED SPOTS ON ARMS Penicillins AdvReac Severe Vomiting Verified 02/23/23 06:27 Home Medications Medication Instructions Recorded Confirmed Type cetirizine 10 mg tablet 10 mg PO DAILY 12/12/19 02/23/23 History fluticasone propionate 50 2 spray intranasal BID 12/12/19 02/23/23 History mcg/actuation nasal spray,suspension omega 7-aba-bjc-fish oil 60 mg-90 1,500 cap PO DAILY 08/18/20 02/23/23 History mg-500 mg capsule (Fish Oil) calcium 600 mg-D3 800 unit-mag11 2 tablet PO DAILY 12/15/20 02/23/23 History 50 yp-uetu-ckqswa-daniel-s.borat tablet (Caltrate 600-D Plus Minerals) cholecalciferol (vitamin D3) 50 50 mcg PO DAILY 12/15/20 02/23/23 History mcg (2,000 unit) capsule vit C 250 mg-vit E 90 mg-zinc 40 1 tablet PO BID 08/31/21 02/23/23 History mg-copper 1 es-yxqeox-mfhgxc capsule (PreserVision AREDS-2) lifitegrast 5 % eye drops in a 1 drp EACH EYE BID 09/02/21 02/23/23 History dropperette (Xiidra) alendronate 70 mg tablet 70 mg PO WEEKLY #14 tabs 12/22/22 02/23/23 Rx lisinopril 20 mg tablet 20 mg PO QPM 02/11/23 02/23/23 History metronidazole 1 % topical gel 1 applic topical DAILY 02/11/23 02/23/23 History yqwruktukuqd-Lk-svlq-minerals 1 tablet PO DAILY 02/11/23 02/23/23 History olopatadine 0.6 % nasal spray 2 spray intranasal BID 02/11/23 02/23/23 History triamcinolone acetonide 0.1 % 1 applic topical DAILY 02/11/23 02/23/23 History topical ointment levothyroxine 88 mcg tablet 88 mcg PO DAILY #90 tabs 02/21/23 02/23/23 Rx atorvastatin 40 mg tablet 40 mg PO HS 02/23/23 02/23/23 History Patient hx anesthesia problems: none Family hx anesthesia problems: none Results Review: All pre-operative results and documents have been reviewed as part of the pre-operative evaluation. [facility] Past Medical History Medical History Cataract Essential (primary) hypertension Gastroesophageal reflux disease History of miscarriage x5 Hyperlipidemia Hypothyroidism (acquired) Hypothyroidism, unspecified Intermittent acute porphyria syndrome Optic neuritis Osteopenia Rosacea Thrombocytopenia Vaginal delivery x1 Surgical History Surgical History H/O dilation and curettage X5 H/O: hysterectomy 12/09/15 History of colposcopy History of eye surgery 2019, for cataracts Family History Family History Father Cerebrovascular accident Sibling Cerebrovascular accident Mother Acute myocardial infarction Other Hypertension Social History Social History Social History: Smoking packs per day: 1 Smoking cigarettes per day: 20.0 Years smoked: 3 Smoking pack-years: 3.00 Smoking status: Former smoker Tobacco type: cigarettes Second hand tobacco smoke exposure: No Smoking end date: 02/26/78 Alcohol intake: current Alcohol use details: Rarely.....mostly Holidays Substance use: never Substance use type: does not use Lack of Transportation: No Lack of Food: Never True Current Housing: I Have Housing Concerned About Future Housing: No Difficulty Paying Gas/Electric Bills: No Difficulty
--- NOTE | 2023-02-23 07:13 | WPDHPUPDATE1 ---
History and Physical Update Update Date/Time: 02/23/23 07:13 History and Physical has been reviewed, including an updated exam of the patient. There are NO changes in the patient's condition. Risks, benefits, and alternatives have been discussed and questions answered. Patient agrees to proceed with procedure.
[2023-02-23] MEDS: ceFAZolin 2 GM/D5W 50 ML 2 GM/50 ML BAG IVPB (07:28)
--- NOTE | 2023-02-23 07:59 | WPDANESPNB ---
Anes - Peripheral Nerve Block Date/Time: 02/23/23 07:59 I have discussed with the patient/family/POA the placement of a peripheral nerve block for post-operative pain management, including associated risks, benefits, complications, and side effects. Alternative methods of post-operative analgesia were detailed. Questions were solicited and answers provided to the satisfaction of the patient/family/POA. Time-Out: A pre-procedural Time-Out was completed immediately before starting the procedure and confirmed: Patient Identification, Site, Procedure, Patient Position and the Availability of Requisite Equipment. Clinical Indications: Acute post-operative pain management requested by the operative surgeon. Nerve Block Insertion Note Anes-nerve block: femoral left Patient position: supine Skin prep: chlorhexidine Needle: 22 gauge, stimulating, insulated echogenic needle. Needle length: 50 mm Technique: nerve stimulation lost at (mA) (0.4) Injectate: bupivacaine 0.5% with epi 5 mcg/ml (30cc no epi) Observations: tolerated well Complications: none Procedure start time:: 714 Procedure end time:: 719
--- NOTE | 2023-02-23 09:09 | P.OP_ITS ---
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 General anesthetic was administered. Placed on the operating table and sterilely prepped and draped in usual manner. A longitudinal incision was made. Tourniquet inflated to 300 mmHg for a total of [time] minutes. Dissection carried down to the fascia. Medial parapatellar incision was made and the patella subluxated laterally. Patella cut from 24 to 15 mm and sized for a 34 mm button. The tibia cut perpendicular to the long axis and femur cut in 5 degrees of valgus, a 65 femur trialed. 67 tibia was felt to fit the best. The soft tissues balanced, hemostasis obtained. All [address], 67 tibia, 65 femur, 34 mm patella, and 12 mm poly. Motion was 0-125 degrees with good stablility and flexion and extension. The wound was closed with #2 vicryl, 2-0 Vicryl and isadora. On first attempt a 10 mm liner was placed. This tibia subluxated anteriorly and the liner was changed to a 12AS mm Estimated Blood Loss 200 Tourniquet Time 46 Drains No Packing No Pathology None sent Complications No immediate complications Condition Stable Disposition PACU
[2023-02-23] MEDS: ceFAZolin SODIUM 1 GM VIAL IV PUSH (09:25)
[2023-02-23] MEDS: ONDANSETRON INJ 4 MG/2 ML VIAL IV PUSH (10:10)
[2023-02-23] MEDS: fentaNYL CITRATE INJ (*CRX) 100 MCG/2 ML VIAL 25 MCG IV PUSH ×4 (10:10→10:16)
[2023-02-23] MEDS: HYDROcodone/acetaminophen (*CRX) 7.5-325 MG TABLET 1 TAB PO ×3 (12:27→21:01)
--- NOTE | 2023-02-23 16:09 | PCPTNOTE ---
On 02/23/23, the student, [Trish Armendariz], provided care and completed [employer] documentation on this patient. I have reviewed the student's documentation and agree with the findings.
--- NOTE | 2023-02-23 17:03 | PM.IMCN ---
Assessment and Plan Assessment and plan (1) Bilateral primary osteoarthritis of knee: Code(s): M17.0 - Bilateral primary osteoarthritis of knee Status: Acute Assessment and Plan: Zainab Stone is a 67 year old female patient with history severe left knee osteoarthritis and failed conservative management was seen by her orthopedic surgeon and had a left knee total arthroplasty today, patient has history of hypertension hypothyroid and hyperlipidemia we have been consulted for medical management by Dr. Valverde orthopedic surgeon, patient states the pain is better denies any chest pain shortness of breath or dizzy, patient home medication has been resumed will continue to monitor with you. If you have any question please feel free to call us thank you. (2) Essential (primary) hypertension: Code(s): I10 - Essential (primary) hypertension Status: Acute Assessment and Plan: Patient's home regimen is resumed, blood pressure is controlled and patient does not have any complaint of chest pain (3) Hypothyroidism, unspecified: Qualifiers: Hypothyroidism type: acquired Qualified Code(s): E03.9 - Hypothyroidism, unspecified Code(s): E03.9 - Hypothyroidism, unspecified Status: Acute Assessment and Plan: Will resume home medication and monitor (4) Gastroesophageal reflux disease: Qualifiers: Esophagitis presence: without esophagitis Qualified Code(s): K21.9 - Gastro-esophageal reflux disease without esophagitis Code(s): K21.9 - Gastro-esophageal reflux disease without esophagitis Status: Acute Assessment and Plan: Will give anti acid as needed HPI Data of Consult Consult date: 02/23/23 Requesting Physician: Cesar Valverde MD Primary Care Provider: Jada Kenney MD Consult Narrative Narrative: Zainab Stone is a 67 year old female patient with history severe left knee osteoarthritis and failed conservative management was seen by her orthopedic surgeon and had a left knee total arthroplasty today, patient has history of hypertension hypothyroid and hyperlipidemia we have been consulted for medical management by Dr. Valverde orthopedic surgeon, patient states the pain is better denies any chest pain shortness of breath or dizzy, patient home medication has been resumed will continue to monitor with you. If you have any question please feel free to call us thank you. Review of Systems Review of Systems: Ten point review of systems otherwise negative PMFSH Past Medical History Medical History Cataract Essential (primary) hypertension Gastroesophageal reflux disease History of miscarriage x5 Hyperlipidemia Hypothyroidism (acquired) Hypothyroidism, unspecified Intermittent acute porphyria syndrome Optic neuritis Osteopenia Rosacea Thrombocytopenia Vaginal delivery x1 Surgical History Surgical History H/O dilation and curettage X5 H/O: hysterectomy 12/09/15 History of colposcopy History of eye surgery 2019, for cataracts Family History Family History Father Cerebrovascular accident Sibling Cerebrovascular accident Mother Acute myocardial infarction Other Hypertension Social History Social History Social History: Smoking packs per day: 1 Smoking cigarettes per day: 20.0 Years smoked: 3 Smoking pack-years: 3.00 Smoking status: Former smoker Tobacco type: cigarettes Second hand tobacco smoke exposure: Yes Smoking end date: 02/26/78 Alcohol intake: current Drinks per week: 1 Alcohol use details: Rarely.....mostly Holidays Substance use: never Substance use type: does not use Lack of Transportation: No Lack of Food: Never True Current Housing:
[2023-02-23] MEDS: ceFAZolin 1 GM/NS 50 ML 1 GM/50 ML BAG IVPB ×2 (17:11→23:03)
[2023-02-23] MEDS: lisinopriL 20 MG TABLET PO (17:12)
[2023-02-23] MEDS: CELECOXIB 200 MG CAPSULE PO (17:12)
[2023-02-23] MEDS: SENNA/DOCUSATE SODIUM TABLET 2 TAB PO (17:12)
[2023-02-23] MEDS: RIVAROXABAN 10 MG TABLET PO (17:13)
[2023-02-23] MEDS: FLUTICASONE PROPIONATE 0.05% NA SPR 16 GM BTL (*BKC) 2 SPRAY NASAL (20:03)
[2023-02-23] MEDS: ATORVASTATIN 40 MG TABLET PO (20:03)
[2023-02-23] MEDS: CALCIUM CARBONATE (TUMS) 500 MG (200 MG ELEMENTAL) PO (20:08)
[2023-02-24] VITALS: PULSE 75
[2023-02-24 00:22] VITALS: BP 111/53; PULSE 78; RESP 18; TEMP 36.6; O2SAT 98
[2023-02-24] MEDS: HYDROcodone/acetaminophen (*CRX) 7.5-325 MG TABLET 1 TAB PO ×4 (00:56→13:29)
[2023-02-24 04:00] VITALS: PULSE 73
[2023-02-24 04:22] VITALS: BP 104/53; PULSE 79; RESP 18; TEMP 36.9; O2SAT 98
[2023-02-24] MEDS: LEVOTHYROXINE SODIUM 88 MCG TABLET PO (05:07)
[2023-02-24 06:15] LABS: Basophils Percent Auto 0.3 % (0.2-1.2); Eosinophils Percent Auto 0.5 % (0-4.4); Hematocrit 32.3 % (37.0-47.0); Hemoglobin 10.6 g/dL (12.0-15.0); Immature Granulocyte Absolute 0.03 K/mm3 (0.00-0.031); Immature Granulocyte Percent A 0.4 % (0-0.5); Lymphocytes Absolute Auto 1.08 K/mm3 (0.9-3.2); Lymphocytes Percent Auto 14.1 % (18.3-44.2); Mean Corpuscular HGB Conc 32.8 g/dl (32-36); Mean Corpuscular Hemoglobin 31.1 pg (26-34); Mean Corpuscular Volume 94.7 fl (80-100); Mean Platelet Volume 10.8 fl (7.4-10.4); Monocytes Absolute Auto 1.1 K/mm3 (0.1-0.6); Monocytes Percent Auto 13.7 % (2.6-8.5); Neutrophils Absolute Auto 5.4 K/mm3 (1.3-6.7); Platelet Count Result 175 k/mm3 (150-375); Red Blood Count 3.41 M/mm3 (4.2-5.4); Red Cell Distribution Width 13.9 % (11.5-14.5); White Blood Count 7.7 K/mm3 (4.5-10.0)
[2023-02-24 06:29] LABS: Anion Gap 2 mmol/L (8-16); Blood Urea Nitrogen 11 mg/dL (7-17); Calcium 8.6 mg/dL (8.4-10.2); Carbon Dioxide 30 mmol/L (22-30); Chloride 103 mmol/L (98-107); Estimated CRCL calculation 62 ml/min; Estimated Glomerular Filt Rate > 60; Glucose 123 mg/dL (65-110); Potassium 3.8 mmol/L (3.4-5.0); Sodium 135 mmol/L (137-145)
[2023-02-24] MEDS: ceFAZolin 1 GM/NS 50 ML 1 GM/50 ML BAG IVPB (06:38)
--- NOTE | 2023-02-24 07:29 | PM.PNORT ---
Subjective Subjective Date/Time Seen: 02/24/23 07:29 Interval history: POD #1 AVSS NVI Doing well Objective Data Vital Signs Vital Signs: Vital Signs - 24 hr 02/23/23 09:44 02/23/23 09:50 02/23/23 10:00 Temperature 37.3 C Pulse Rate 86 85 80 Respiratory Rate 12 12 12 Blood Pressure 133/65 137/74 140/72 Pulse Oximetry 100 100 100 Oxygen Delivery Simple Face Mask Simple Face Mask Room Air Oxygen Flow Rate 10 10 02/23/23 10:15 02/23/23 10:30 02/23/23 10:36 Temperature Pulse Rate 78 81 74 Respiratory Rate 12 14 12 Blood Pressure 122/60 134/80 149/63 H Pulse Oximetry 100 100 100 Oxygen Delivery Nasal Cannula Nasal Cannula Nasal Cannula Oxygen Flow Rate 2 2 2 02/23/23 10:37 02/23/23 10:52 02/23/23 11:22 Temperature 36.4 C 36.7 C 36.6 C Pulse Rate 72 72 70 Respiratory Rate 16 16 16 Blood Pressure 149/70 H 140/70 137/68 Pulse Oximetry 100 100 100 Oxygen Delivery Oxygen Flow Rate 02/23/23 13:35 02/23/23 12:22 02/23/23 16:00 Temperature 36.4 C Pulse Rate 62 78 Respiratory Rate 16 Blood Pressure 133/64 Pulse Oximetry 100 Oxygen Delivery Room Air Oxygen Flow Rate 02/23/23 16:22 02/23/23 17:10 02/23/23 20:22 Temperature 36.1 C L 36.9 C Pulse Rate 83 79 Respiratory Rate 16 16 Blood Pressure 129/72 135/73 125/67 Pulse Oximetry 99 100 Oxygen Delivery Oxygen Flow Rate 02/23/23 20:00 02/24/23 00:00 02/24/23 00:22 Temperature 36.6 C Pulse Rate 80 75 78 Respiratory Rate 18 Blood Pressure 111/53 L Pulse Oximetry 98 Oxygen Delivery Oxygen Flow Rate 02/24/23 04:00 02/24/23 04:22 Temperature 36.9 C Pulse Rate 73 79 Respiratory Rate 18 Blood Pressure 104/53 L Pulse Oximetry 98 Oxygen Delivery Oxygen Flow Rate Intake/Output Intake/Output: Intake & Output 02/21/23 02/22/23 02/23/23 02/24/23 23:59 23:59 23:59 23:59 Intake Total 1929 100 Balance 193 100 Meds/Results Medications: Active Medications Generic Name Dose Route Start Last Admin Trade Name Freq PRN Reason Stop Dose Admin Hydrocodone Bitart/Acetaminophen 1 tab 02/23/23 10:37 Hydrocodone/Acetaminophen (*Crx) 7.5-325 Mg Tablet PO Q6H PRN Pain Rated 7-10 Hydrocodone Bitart/Acetaminophen 1 tab 02/23/23 10:37 Hydrocodone/Acetaminophen (*Crx) 5-325 Mg Tablet PO Q4H PRN Pain Rated 4-6 Hydrocodone Bitart/Acetaminophen 1 tab 02/23/23 13:00 02/24/23 05:07 Hydrocodone/Acetaminophen (*Crx) 7.5-325 Mg Tablet PO 1 tab Q4HR CALEB Administration Alendronate Sodium 70 mg 03/02/23 06:30 Alendronate Sodium 70 Mg Tablet PO We@0630 CALEB Atorvastatin Calcium 40 mg 02/23/23 21:00 02/23/23 20:03 Atorvastatin 40 Mg Tablet PO 40 mg HS CALEB Administration Calcium Carbonate 200 mg 02/23/23 17:00 02/23/23 20:08 Calcium Carbonate (Tums) 500 Mg (200 Mg Elemental) PO 200 mg Q6H PRN Administration Indigestion Celecoxib 200 mg 02/23/23 17:00 02/23/23 17:12 Celecoxib 200 Mg Capsule PO 200 mg BIDWM CALEB Administration Cyclobenzaprine HCl 10 mg 02/23/23 10:37 Cyclobenzaprine Hcl 10 Mg Tablet PO Q8H PRN Spasms Fluticasone Propionate 2 spray 02/23/23 21:00 02/23/23 20:03 Fluticasone Propionate 0.05% Na Spr 16 Gm Btl (*Bkc) NASAL 2 spray Q12HR CALEB Administration Cefazolin Sodium 1 gm in 50 mls @ 100 mls/hr 02/23/23 15:30 02/24/23 06:38 Ancef 1 Gm/Ns 50 Ml IVPB 02/24/23 07:59 100 mls/hr Q8H CALEB Administration Levothyroxine Sodium 88 mcg 02/24/23 06:30 02/24/23 05:07 Levothyroxine Sodium 88 Mcg Tablet PO 88 mcg DAILY@0630 CALEB Administration Lisinopril 20 mg 02/23/23 18:00 02/23/23 17:12 Lisinopril 20 Mg Tablet PO 20 mg QPM CALEB Administration Loratadine 10 mg 02/24/23 09:00 Loratadine 10 Mg Tablet PO DAILY [facility] Multivitamins/Calcium 1 tablet 02/24/23 09:00 Therapeutic Multivitamins/Minerals Tab (*Bkc) PO DAILY
--- NOTE | 2023-02-24 07:33 | WPDANESPN ---
Anes - Prog Note Post-Op Date/Time: 02/24/23 07:33 Cardiovascular status: normal Respiratory status: normal Airway patency: baseline Mental status: baseline Post-Op hydration status: normal Vital Signs: Last Vital Signs Temp 36.9 C 02/24/23 04:22 Pulse 79 02/24/23 04:22 Resp 18 02/24/23 04:22 BP 104/53 L 02/24/23 04:22 Pulse Ox 98 02/24/23 04:22 O2 Del Method Room Air 02/23/23 13:35 O2 Flow Rate 2 02/23/23 10:36 Pain Score (VAS): 11/05 I/O: Intake & Output 02/23/23 02/23/23 02/24/23 15:59 23:59 07:59 Intake Total 540 1340 100 Balance 540 1340 100 Laboratory Tests 02/24/23 05:58 02/24/23 05:58 02/24/23 05:58 WBC 7.7 RBC 3.41 L Hgb 10.6 L Hct 32.3 L MCV 94.7 MCH 31.1 MCHC 32.8 RDW 13.9 Plt Count 175 MPV 10.8 H Immature Gran % (Auto) 0.4 Neut % (Auto) 71.0 Lymph % (Auto) 14.1 L [place] % (Auto) 13.7 H Eos % (Auto) 0.5 Baso % (Auto) 0.3 Lymph # (Auto) 1.08 [place] # (Auto) 1.1 H Eos # (Auto) 0.0 Baso # (Auto) 0.0 Abs Immat Gran (auto) 0.03 Absolute Neuts (auto) 5.4 Absolute Nucleated RBC 0.0 Nucleated RBC % 0.0 Sodium 135 L Potassium 3.8 Chloride 103 Carbon Dioxide 30 Anion Gap 2 L BUN 11 Creatinine 0.60 L Estim Creat Clear Calc 62 Estimated GFR > 60 Glucose 123 H Calcium 8.6 Post-procedural complaints: none Patient Feedback: Patient satisfied with anesthetic care.
[2023-02-24 08:00] VITALS: PULSE 82
--- NOTE | 2023-02-24 08:44 | PCPTNOTE ---
Attempted to see patient for PT, however patient was eating breakfast.
[2023-02-24] MEDS: FLUTICASONE PROPIONATE 0.05% NA SPR 16 GM BTL (*BKC) 2 SPRAY NASAL (09:20)
[2023-02-24] MEDS: CELECOXIB 200 MG CAPSULE PO (09:21)
[2023-02-24] MEDS: LORATADINE 10 MG TABLET PO (09:21)
[2023-02-24] MEDS: THERAPEUTIC MULTIVITAMINS/MINERALS TAB (*BKC) 1 TABLET PO (09:21)
[2023-02-24] MEDS: SENNA/DOCUSATE SODIUM TABLET 2 TAB PO (09:21)
[2023-02-24] MEDS: polyethylene glycoL 3350 17 GM POWD.PACK PO (09:21)
[2023-02-24 10:39] VITALS: BP 134/64; PULSE 78; RESP 16; TEMP 36.4; O2SAT 98
--- NOTE | 2023-02-24 14:33 | PC.NURSE ---
RN supplied pt with 4x4 gauze pads and a box of flexnet to do dressing changes at home.
--- NOTE | 2023-02-24 14:36 | WPDPN ---
Progress Note: A&P Assessment and Plan (1) Bilateral primary osteoarthritis of knee: Code(s): M17.0 - Bilateral primary osteoarthritis of knee Status: Acute Assessment and Plan: 02/24/2023 interval history: Zainab Stone is a 67 year old female patient with history severe left knee osteoarthritis and failed conservative management was seen by her orthopedic surgeon and had a left knee total arthroplasty on 02/23 POD#1, , patient has history of hypertension hypothyroid and hyperlipidemia we have been consulted for medical management by Dr. Valverde orthopedic surgeon, patient states the pain is better denies any chest pain shortness of breath or dizzy, patient home medication has been resumed will continue to monitor with you. Today patient states feeling better, her is present in the room and seen by her orthopedic surgeon and patient be discharged today (2) Essential (primary) hypertension: Code(s): I10 - Essential (primary) hypertension Status: Acute Assessment and Plan: Patient's home regimen is resumed, blood pressure is controlled and patient does not have any complaint of chest pain (3) Hypothyroidism, unspecified: Qualifiers: Hypothyroidism type: acquired Qualified Code(s): E03.9 - Hypothyroidism, unspecified Code(s): E03.9 - Hypothyroidism, unspecified Status: Acute Assessment and Plan: Will resume home medication and monitor (4) Gastroesophageal reflux disease: Qualifiers: Esophagitis presence: without esophagitis Qualified Code(s): K21.9 - Gastro-esophageal reflux disease without esophagitis Code(s): K21.9 - Gastro-esophageal reflux disease without esophagitis Status: Acute Assessment and Plan: Will give anti acid as needed Subjective Date/time seen: 02/24/23 14:36 Interval history: 02/24/2023 interval history: Zainab Stone is a 67 year old female patient with history severe left knee osteoarthritis and failed conservative management was seen by her orthopedic surgeon and had a left knee total arthroplasty on 02/23 POD#1, , patient has history of hypertension hypothyroid and hyperlipidemia we have been consulted for medical management by Dr. Valverde orthopedic surgeon, patient states the pain is better denies any chest pain shortness of breath or dizzy, patient home medication has been resumed will continue to monitor with you. Today patient states feeling better, her is present in the room and seen by her orthopedic surgeon and patient be discharged today Review of Systems Review of Systems: Ten point review of systems otherwise negative Exam Narrative: Patient is comfortable, NAD HEENT: eyes are clear and none icteric LUNGS: Normal respiratory effort ABD: Not distended Lower extremities: no edema SKIN: nonjaundiced Neuro: grossly intact. Objective Data Vital Signs Vital Signs: Vital Signs - 24 hr 02/23/23 16:00 02/23/23 16:22 02/23/23 17:10 Temperature 97.0 F L Pulse Rate 78 83 Respiratory Rate 16 Blood Pressure 129/72 135/73 Pulse Oximetry 99 Oxygen Delivery 02/23/23 20:22 02/23/23 20:00 02/24/23 00:00 Temperature 98.4 F Pulse Rate 79 80 75 Respiratory Rate 16 Blood Pressure 125/67 Pulse Oximetry 100 Oxygen Delivery 02/24/23 00:22 02/24/23 04:00 02/24/23 04:22 Temperature 98 F 98.4 F Pulse Rate 78 73 79 Respiratory Rate 18 18 Blood Pressure 111/53 L 104/53 L Pulse Oximetry 98 98 Oxygen Delivery 02/24/23 09:28 02/24/23 08:00 02/24/23 10:39 Temperature 97.5 F L Pulse Rate 82 78 Respiratory Rate 16 Blood Pressure 134/64 Pulse Oximetry 98 Oxygen Delivery Room Air Intake/Output Intake/Output: Intake & Output 02/21/23 02/22/23 02/23/23 02/24/23 23:59 23:59 23:59 23:59 Intake Total 1929 580 Balance 1929 580 Meds/Results Medications: Active Medications Generic Name Dose Route Start Las
== END 2023-02-24 15:00 | disposition home or self-care (01) ==
LOC: ANHSURGERY 05:54 → ANH3MED 10:41
PROVIDERS: PCP Family Medicine; Visit Provider Orthopaedic Surgery
PROC: (CPT 27447; principal; 2023-02-23 07:30)
DX: M17.12 Unilateral primary osteoarthritis, left knee (principal); G89.18 Other acute postprocedural pain; I10 Essential (primary) hypertension; K21.9 Gastro-esophageal reflux disease without esophagitis; E78.5 Hyperlipidemia, unspecified; E03.9 Hypothyroidism, unspecified; E80.21 Acute intermittent (hepatic) porphyria; H46.9 Unspecified optic neuritis; Z87.891 Personal history of nicotine dependence
CPT/HCPCS: 27447; 64447; 36415; 73560; 80048; 80307; 82040; 82565; 82947; 83036; 85025; 86850; 86900; 86901; 87081; 97110; 97116; 97161; 97165; 97530; 97535; A9270; C1713; C1776; J0171; J0690; J1100; J1170; J2250; J2270; J2405; J2704; J2795; J3010; J3370; J7120

== ENCOUNTER → 2023-03-16 13:02 | Outpatient (CLI) | payer MEDICARE, SELFPAY ==
--- NOTE | ~2023-03-16 | MM_ITS ---
EXAMINATION: MM screening [facility] BI w ema HISTORY: Screening TECHNIQUE: Craniocaudal and mediolateral oblique 3-D tomosynthesis images were obtained and synthetic 2-D images were generated. CAD analysis was submitted and interpreted. COMPARISON: Comparison to multiple prior studies sequentially, with oldest reviewed study dated 12/23. BREAST PARENCHYMAL COMPOSITION: There are scattered areas of fibroglandular density. FINDINGS: There is no evidence of suspicious mass, calcification, or architectural distortion to sugg est malignancy in either breast. There has been no suspicious interval change. IMPRESSION: 1. No mammographic evidence of malignancy. 2. Recommend routine screening mammography in one year. BI-RADS Category 1: Negative Reviewed, dictated and finalized at location A.
== END ==
PROVIDERS: PCP Family Medicine; Visit Provider Physician Assistant
DX: Z12.31 Encounter for screening mammogram for malignant neoplasm of breast (principal)
CPT/HCPCS: 77063; 77067

== ENCOUNTER → 2023-05-31 14:55 | Outpatient (CLI) | payer MEDICARE, SELFPAY ==
--- NOTE | ~2023-05-31 | XR_ITS ---
XR knee RT 3V DATE: 05/31/2023 15:14 INDICATION: Right knee pain TECHNIQUE: [place] and standing AP and lateral views COMPARISON: None FINDINGS: Prominent patellar enthesopathy at quadriceps tendon insertion site. Moderate periarticular spurring at the patellofemoral joint. Moderate loss of medial compartment joint space height. Mild periarticular spurring of the lateral ti bial patella. No fracture or dislocation. Small suprapatellar knee joint effusion may be present. No radiopaque int ra-articular loose body or chondrocalcinosis. No periosteal reaction or bone destruction. IMPRESSION: Osteoarthritis involving particularly the medial and patellofemoral compartments Reviewed, dictated and finalized at location L.
== END ==
PROVIDERS: PCP Family Medicine; Visit Provider Orthopaedic Surgery
DX: M17.11 Unilateral primary osteoarthritis, right knee (principal)
CPT/HCPCS: 73562

== ENCOUNTER 2023-07-04 09:47 | Outpatient (CLI) | payer MEDICARE, SELFPAY ==
--- NOTE | 2023-07-04 10:49 | ECG_ITS ---
Measurements Intervals [place] Rate: 65 P: 73 MI: 169 QRS: 13 QRSD: 87 T: 43 QT: 397 QTc: 415 Interpretive Statements SINUS RHYTHM BASELINE ARTIFACT- I, II, III, AVR, AVL NORMAL ECG COMPARED TO ECG 03/11/2022 11:59:45 NO SIGNIFICANT CHANGES Electronically Signed On 07-04-2023 12:02:59 BUSINESS MGR by Rk Hunter D.O.
[2023-07-04 12:30] LABS: Basophils Percent Auto 0.7 % (0.2-1.2); Eosinophils Absolute Auto 0.1 K/mm3 (0-0.3); Eosinophils Percent Auto 1.6 % (0-4.4); Hematocrit 41.6 % (37.0-47.0); Hemoglobin 13.2 g/dL (12.0-15.0); Immature Granulocyte Absolute 0.02 K/mm3 (0.00-0.031); Immature Granulocyte Percent A 0.3 % (0-0.5); Lymphocytes Absolute Auto 1.64 K/mm3 (0.9-3.2); Lymphocytes Percent Auto 26.9 % (18.3-44.2); Mean Corpuscular HGB Conc 31.7 g/dl (32-36); Mean Corpuscular Hemoglobin 29.5 pg (26-34); Mean Corpuscular Volume 92.9 fl (80-100); Mean Platelet Volume 12.5 fl (7.4-10.4); Monocytes Absolute Auto 0.6 K/mm3 (0.1-0.6); Neutrophils Absolute Auto 3.7 K/mm3 (1.3-6.7); Neutrophils Percent Auto 61.5 % (45.5-73.1); Platelet Count Result 222 k/mm3 (150-375); Red Blood Count 4.48 M/mm3 (4.2-5.4); Red Cell Distribution Width 14.5 % (11.5-14.5); White Blood Count 6.1 K/mm3 (4.5-10.0)
[2023-07-04 12:40] LABS: Urine Cotinine NEGATIVE
[2023-07-04 12:45] LABS: Albumin Level 4.6 g/dL (3.5-5.1); Estimated Glomerular Filt Rate > 60; Glucose 77 mg/dL (65-110)
[2023-07-04 12:47] LABS: Hemoglobin A1C 5.9 % (<5.7)
== END 2023-07-04 09:48 | disposition home or self-care (01) ==
LOC: ANHSURGERY 09:51
PROVIDERS: PCP Family Medicine; Visit Provider Orthopaedic Surgery
DX: M17.11 Unilateral primary osteoarthritis, right knee (principal); Z01.818 Encounter for other preprocedural examination
CPT/HCPCS: 80307; 82040; 82565; 82947; 83036; 85025; 86850; 86900; 86901; 87081; 93005

== ENCOUNTER 2023-07-14 16:13 | Observation (INO) | payer MEDICARE, SELFPAY ==
--- NOTE | 2023-07-04 10:03 | PC.NURSE ---
PRE-OP INSTRUCTIONS, PLEASE READ CAREFULLY Report to the Outpatient Waiting Room, entrance under the green pavilion located off [facility], at time _0600_ on date _07/13/23_. Planned Procedure Time: _0730_. PACK A SMALL OVERNIGHT BAG AND LEAVE IN THE CAR ALONG WITH YOUR WALKER Time changes happen often and if your time is changed the preop area will call you the afternoon before. - You and your visitor will be asked to self-screen and do not enter if you have any COVID symptoms. - A mask is optional within the hospital at this time. -VISITING HOURS 8AM 8PM Patients may have clear liquids (water, carbonated beverages, clear teas, apple juice) until 3 hours prior to surgery (0430 AM) with a maximum of 20 ounces. - No food from midnight until time of surgery Take the following medications with a SIP of water the morning of surgery: _LEVOTHYROXINE, NASAL SPRAY, EYE DROPS_ DO NOT STOP ANY OF YOUR OTHER PRESCRIPTION MEDICATIONS PRIOR TO SURGERY ?EXCEPT THE FOLLOWING Medications to discontinue per ANESTHESIA - _VITAMINS & SUPPLEMENTS 3 DAYS PRIOR TO SURGERY, Date to take last dose 07/09/23_ Please no make-up, nail korean, hairspray, perfume, deodorant, or body powder the day of surgery. No jewelry (including any body piercings) or valuables the day of surgery, leave them at home. Please take a shower or bath the night before, or the morning of, surgery with an antibacterial soap. Wear comfortable, loose fitting clothing. - Jewelry must be removed prior to entering the operating room. Rings and piercings that are not removed may be cut off. - The hospital will not accept responsibility for valuables. - Please leave all valuables, including medications, at home the day of surgery. If you are going home after surgery, a licensed residential recycle driver must drive you home. - NO public transportation without another adult if you receive anesthesia. - We recommend that an adult stay with you for 24 hours following discharge. - We also recommend that you do not drive, make important decision, drink alcoholic beverages, or take any drugs that were not prescribed by your health care provider for at least 24 hours after your discharge time. Follow any additional instructions given to you from your surgeon. If you or anyone in your household have experienced Covid symptoms in the past week, please notify your surgeon or the nurse liaison at the phone number below for possible testing. Instructions given to _PATIENT_and asked if any additional questions and then verbalized understanding. Patient advised to call surgeon office or pre surgery nurse liaison [phone] if any additional questions.
[2023-07-04 10:26] VITALS: BP 142/74; PULSE 66; RESP 18; TEMP 36.7; O2SAT 97; BMI 23.6
--- NOTE | 2023-07-12 14:19 | PM.IMHP ---
H&P: HPI History of Present Illness Date/Time: 07/12/23 14:19 Chief Complaint: Patient presents knee pain right. She has arthritic right knee and would like to proceed with a knee replacement. I previously did the left knee several months ago and she is quite happy with that. She has failed conservative treatment been has a hard time getting around at this point. Review of Systems Musculoskeletal: Musculoskeletal: Reports arthralgias and Reports joint swelling PMFSH Past Medical History Medical History (Updated 07/12/23 @ 14:21 by Cesar Valverde MD) Cataract Essential (primary) hypertension Gastroesophageal reflux disease History of miscarriage x5 Hyperlipidemia Hypothyroidism (acquired) Hypothyroidism, unspecified Intermittent acute porphyria syndrome Optic neuritis Osteopenia Rosacea Thrombocytopenia Vaginal delivery x1 Surgical History Surgical History (Updated 06/01/23 @ 13:59 by Cesar Valverde MD) H/O dilation and curettage X5 H/O: hysterectomy 12/09/15 History of colposcopy History of eye surgery 2019, for cataracts History of left knee replacement Dr Valverde- 02/23/23 Family History Family History Father Cerebrovascular accident Sibling Cerebrovascular accident Mother Acute myocardial infarction Other Hypertension Social History Social History (Updated 06/01/23 @ 13:19 by Coreen Casey CMA) Social History: Smoking packs per day: 1 Smoking cigarettes per day: 20.0 Years smoked: 3 Smoking pack-years: 3.00 Smoking status: Former smoker Tobacco type: cigarettes Second hand tobacco smoke exposure: No Smoking end date: 02/26/78 Additional smoking assessment comments: PT DENIES ALL FORMS OF TOBACCO USE Alcohol intake: current Drinks per week: 1 Alcohol use details: VERY RARELY - COUPLE TIMES A YR - HOLIDAYS Substance use: never Substance use type: does not use Lack of Transportation: No Lack of Food: Never True Current Housing: I Have Housing Concerned About Future Housing: No Difficulty Paying Gas/Electric Bills: No Difficulty Paying for Meds: No Currently Unemployed: No Education: Master's Degree or Higher Difficulty w/ Childcare or Family Care: No Living arrangements: with family Additional living arrangements comments: HUSB Occupation/Education: retired Gender identity (if verbalized by the patient): Female Sexual Orientation (if Verbalized by the Patient): Straight or Heterosexual Spiritual care concerns: No Meds Home Medications and Allergies Home Medications Medication Instructions Recorded Confirmed Type cetirizine 10 mg tablet 10 mg PO DAILY 12/12/19 07/04/23 History fluticasone propionate 50 2 spray intranasal BID 12/12/19 07/04/23 History mcg/actuation nasal spray,suspension omega 4-bfd-brj-fish oil 60 mg-90 1,200 cap PO DAILY 08/18/20 07/04/23 History mg-500 mg capsule (Fish Oil) calcium 600 mg-D3 800 unit-mag11 2 tablet PO DAILY 12/15/20 07/04/23 History 50 yd-nhae-sohrlu-daniel-s.borat tablet (Caltrate 600-D Plus Minerals) cholecalciferol (vitamin D3) 50 50 mcg PO DAILY 12/15/20 07/04/23 History mcg (2,000 unit) capsule vit C 250 mg-vit E 90 mg-zinc 40 1 tablet PO BID 08/31/21 07/04/23 History mg-copper 1 xh-lksnxq-yiaafe capsule (PreserVision AREDS-2) lifitegrast 5 % eye drops in a 1 drp EACH EYE BID 09/02/21 07/04/23 History dropperette (Xiidra) alendronate 70 mg tablet 70 mg PO WEEKLY #14 tabs 12/22/22 07/04/23 Rx metronidazole 1 % topical gel 1 applic topical DAILY 02/11/23 07/04/23 History olopatadine 0.6 % nasal spray 2 spray intranasal BID 02/11/23 07/04/23 History triamcinolone acetonide 0.1 % 1 applic topical DAILY 02/11/23 07/04/23 History topical ointment atorvastatin 40 mg tablet 40 mg PO HS 02/23/23 07/04/23 History biotin 10,000 mcg chewable tablet 10,000 mcg
[2023-07-13] VITALS (10 sets, daily range): BP systolic 105–162; BP diastolic 61–97; PULSE 67–87; RESP 12–16; TEMP 35.8–37; O2SAT 96–100
--- NOTE | 2023-07-13 06:25 | WPDANESEPPF ---
Anes - Initial Pre Proc Eval Procedure: Operation Date: 07/13/23 07:30 Proposed Procedures p Right Total Knee Arthroplasty - Cesar Valverde MD Date/Time: 07/13/23 06:25 Surgeon: Cesar Valverde MD Pre Op Diagnosis: oa right knee Patient Data Age: 67 Gender: F Height: 1.57 m Weight: 58.2 kg Last Vital Signs Temp 36.7 C 07/04/23 10:26 Pulse 66 07/04/23 10:26 Resp 18 07/04/23 10:26 BP 142/74 H 07/04/23 10:26 Pulse Ox 97 07/04/23 10:26 O2 Del Method Room Air 07/04/23 10:26 Allergies Allergy/AdvReac Type Severity Reaction Status Date / Time diclofenac Allergy ELEVATED Verified 07/04/23 10:12 BP, RED SPOTS ON ARMS Penicillins AdvReac Severe Vomiting Verified 07/04/23 10:12 Home Medications Medication Instructions Recorded Confirmed Type cetirizine 10 mg tablet 10 mg PO DAILY 12/12/19 07/04/23 History fluticasone propionate 50 2 spray intranasal BID 12/12/19 07/04/23 History mcg/actuation nasal spray,suspension omega 7-sth-jvm-fish oil 60 mg-90 1,200 cap PO DAILY 08/18/20 07/04/23 History mg-500 mg capsule (Fish Oil) calcium 600 mg-D3 800 unit-mag11 2 tablet PO DAILY 12/15/20 07/04/23 History 50 dh-atcz-qnemha-daniel-s.borat tablet (Caltrate 600-D Plus Minerals) cholecalciferol (vitamin D3) 50 50 mcg PO DAILY 12/15/20 07/04/23 History mcg (2,000 unit) capsule vit C 250 mg-vit E 90 mg-zinc 40 1 tablet PO BID 08/31/21 07/04/23 History mg-copper 1 mq-ixzoto-vyeftn capsule (PreserVision AREDS-2) lifitegrast 5 % eye drops in a 1 drp EACH EYE BID 09/02/21 07/04/23 History dropperette (Xiidra) alendronate 70 mg tablet 70 mg PO WEEKLY #14 tabs 12/22/22 07/04/23 Rx metronidazole 1 % topical gel 1 applic topical DAILY 02/11/23 07/04/23 History olopatadine 0.6 % nasal spray 2 spray intranasal BID 02/11/23 07/04/23 History triamcinolone acetonide 0.1 % 1 applic topical DAILY 02/11/23 07/04/23 History topical ointment atorvastatin 40 mg tablet 40 mg PO HS 02/23/23 07/04/23 History biotin 10,000 mcg chewable tablet 10,000 mcg PO DAILY 06/01/23 07/04/23 History (Hair, Skin and Nails (biotin)) multivitamin 1 tablet PO DAILY 06/01/23 07/04/23 History diphenhydramine 25 1 tablet PO HS PRN Pain 07/04/23 07/04/23 History mg-acetaminophen 500 mg tablet (Tylenol PM Extra Strength) levothyroxine 88 mcg tablet 88 mcg PO DAILY #90 tabs 07/04/23 07/04/23 Rx lisinopril 20 mg tablet 30 mg HS 07/04/23 07/04/23 History omeprazole 20 mg capsule,delayed 20 mg PO DAILY 07/04/23 07/04/23 History release vitamin A 2,500 unit-vit C 100 1 cap DAILY 07/04/23 07/04/23 History mg-biotin 2,500 dnm-siec-dfnpym capsule (Eqam-Bhwh-Sput (vit A,C-ubjtql-Pr-Cu)) Patient hx anesthesia problems: none Family hx anesthesia problems: none Results Review: All pre-operative results and documents have been reviewed as part of the pre-operative evaluation. [facility] Past Medical History Medical History Cataract Essential (primary) hypertension Gastroesophageal reflux disease History of miscarriage x5 Hyperlipidemia Hypothyroidism (acquired) Hypothyroidism, unspecified Intermittent acute porphyria syndrome Optic neuritis Osteopenia Rosacea Thrombocytopenia Vaginal delivery x1 Surgical History Surgical History H/O dilation and curettage X5 H/O: hysterectomy 12/09/15 History of colposcopy History of eye surgery 2019, for cataracts History of left knee replacement Dr Valverde- 02/23/23 Family History Family History Father Cerebrovascular accident Sibling Cerebrovascular accident Mother Acute myocardial infarction Other Hypertension Social History Social History Social History: Smoking packs per
[2023-07-13] MEDS: ACETAMINOPHEN 500 MG TABLET 1000 MG PO (06:38)
[2023-07-13] MEDS: LACTATED RINGERS 1,000 ML 30 ML IV CONT ×2 (06:45→09:21)
[2023-07-13] MEDS: VANCOMYCIN 750 MG/NS 250 ML BAG 250 MG IVPB (06:46)
--- NOTE | 2023-07-13 06:53 | WPDHPUPDATE1 ---
History and Physical Update Update Date/Time: 07/13/23 06:53 History and Physical has been reviewed, including an updated exam of the patient. There are NO changes in the patient's condition. Risks, benefits, and alternatives have been discussed and questions answered. Patient agrees to proceed with procedure.
[2023-07-13] MEDS: TRANEXAMIC ACID 1,000MG/ISO100 1,000 MG/100 ML BAG 200 MG IVPB (07:13)
[2023-07-13] MEDS: ceFAZolin 2 GM/D5W 50 ML 2 GM/50 ML BAG IVPB (07:28)
--- NOTE | 2023-07-13 07:49 | WPDANESPNB ---
Anes - Peripheral Nerve Block Date/Time: 07/13/23 07:49 I have discussed with the patient/family/POA the placement of a peripheral nerve block for post-operative pain management, including associated risks, benefits, complications, and side effects. Alternative methods of post-operative analgesia were detailed. Questions were solicited and answers provided to the satisfaction of the patient/family/POA. Time-Out: A pre-procedural Time-Out was completed immediately before starting the procedure and confirmed: Patient Identification, Site, Procedure, Patient Position and the Availability of Requisite Equipment. Clinical Indications: Acute post-operative pain management requested by the operative surgeon. Nerve Block Insertion Note Anes-nerve block: femoral right Patient position: supine Skin prep: chlorhexidine Needle: 22 gauge, stimulating, insulated echogenic needle. Needle length: 50 mm Technique: nerve stimulation lost at (mA) (0.3) Injectate: bupivacaine 0.5% with epi 5 mcg/ml (20cc no epi) Complications: none Procedure start time:: 714 Procedure end time:: 719
[2023-07-13] MEDS: GENTAMICIN BONE CEMENT REFOBACIN 2 EACH TOPICAL (08:09)
[2023-07-13] MEDS: ceFAZolin SODIUM 1 GM VIAL IV PUSH (08:26)
--- NOTE | 2023-07-13 08:40 | P.OP_ITS ---
Procedure Note - Detailed Date of Procedure 07/13/23 Pre-op Diagnosis Osteoarthritis right knee Post-op Diagnosis Same Procedure Performed RIGHT total knee arthroplasty Surgeon Cesar Valverde MD Information Systems Operator [place] Anesthesia General Indications Arthritis and Pain Description of Procedure The patient was brought to the operating room #7. General anesthetic was administered. Placed on the operating table and sterilely prepped and draped in usual manner. A longitudinal incision was made. Tourniquet inflated to 300 mmHg for a total of 33 minutes. Dissection carried down to the fascia. Medial parapatellar incision was made and the patella subluxated laterally. Patella cut from 22 to 15 mm and sized for a 34 mm button. The tibia cut perpendicular to the long axis and femur cut in 5 degrees of valgus, a 65 femur trialed. 67 tibia was felt to fit the best. The soft tissue balanced, hemostasis obtained. All [address], 67 tibia, 65 femur, 34 mm patella, and 12AS mm poly. Motion was 0-125 degrees with good stablility and flexion and extension. The wound was closed with #2 vicryl, 2-0 Vicryl and isadora. Implants [employer] Estimated Blood Loss 200 Drains No Packing No Pathology None sent Complications No immediate complications Condition Stable Disposition PACU [facility] Billing Surgery - Charge Forward: Surgery Billing (TOTAL KNEE [id number])
[2023-07-13] MEDS: fentaNYL CITRATE INJ (*CRX) 100 MCG/2 ML VIAL 25 MCG IV PUSH ×8 (09:26→10:12)
[2023-07-13] MEDS: SENNA/DOCUSATE SODIUM TABLET 2 TAB PO ×2 (11:17→16:30)
[2023-07-13] MEDS: SODIUM CHLORIDE 0.9% IV 1,000 ML 125 ML IV CONT (11:17)
[2023-07-13] MEDS: FAMOTIDINE 20 MG TABLET PO ×2 (11:17→20:51)
[2023-07-13] MEDS: polyethylene glycoL 3350 17 GM POWD.PACK PO (11:20)
--- NOTE | 2023-07-13 11:49 | ADMGEN ---
This patient, Zainab Stone, was admitted to [facility] Surg Room 309-01 at 1035 from post-op. Patient/family oriented to hospital policies and general routines including ID bracelet, bed and alarms, visiting hours, pain management, procedures, bathroom and other care routines, personal items, smoking policy, room service/diet, and visiting hours. Information on how to activate the Rapid Response Team has been discussed. Patient/Family are encouraged to report perceived risks to care and to ask questions if they do not understand what they are told or what they should do.
[2023-07-13] MEDS: HYDROcodone/acetaminophen (*CRX) 5-325 MG TABLET 2 TAB PO ×2 (12:47→18:20)
[2023-07-13] MEDS: CYCLOBENZAPRINE HCL 10 MG TABLET PO ×2 (12:47→20:51)
[2023-07-13] MEDS: ceFAZolin 1 GM/NS 50 ML 1 GM/50 ML BAG IVPB ×2 (14:55→21:05)
[2023-07-13] MEDS: RIVAROXABAN 10 MG TABLET PO (16:30)
[2023-07-13] MEDS: ATORVASTATIN 40 MG TABLET PO (20:51)
--- NOTE | 2023-07-13 21:22 | PM.IMCN ---
Assessment and Plan Assessment and plan (1) S/P total knee arthroplasty: Qualifiers: Laterality: right Qualified Code(s): Z96.651 - Presence of right artificial knee joint Code(s): Z96.659 - Presence of unspecified artificial knee joint Status: Acute (2) Hypothyroidism, unspecified: Qualifiers: Hypothyroidism type: acquired Qualified Code(s): E03.9 - Hypothyroidism, unspecified Code(s): E03.9 - Hypothyroidism, unspecified Status: Acute (3) Essential (primary) hypertension: Code(s): I10 - Essential (primary) hypertension Status: Acute Plan Problem List 1. S/p total knee arthroplasty, right ambulate with assistance and up to chair use IS resume diet: regular pain management zofran PRN for nausea monitor labs in AM bowel regimen: docusate/senna, polyethylene glycol. hypoactive bowel sounds on exam, consider additional medications. 2. hypothyroidism Continue levothyroxine update TSH 3. HTN monitor BP hold home lisinopril, last blood pressure 114/57. resume once BP greater than 130/80. Home Meds/Chronic Conditions - all other home meds held, may resume at discharge Diet: regular GI Prophylaxis: famotidine DVT Prophylaxis: SCDs, Xarelto Lines: pIV Code Status: Full Code 45861 HPI Date of Consult Consult date: 07/14/23 Requesting Physician: Cesar Valverde MD Primary Care Provider: Jada Kenney MD Consult Narrative Reason for consult: Medical Managment Narrative: Zainab Stone is a 67 year old female that presented here for a right knee total arthroplasty. Patient reports that she has had increasing right knee pain over the last few weeks. Previously had left knee done on 02/23 and was pleased with the results. After her L knee surgery she required a walker and was able to transition to a cane. Then was able to transition to no assistive device. But due to the surgery she placed more pressure on her right knee, pain worsened and she was then requiring a cane again due to pain. Has previously attempted conservative measures - steroid injections and physical therapy. elected for surgery instead due to interference activity level. She currently reports otherwise good health. No recent changes in her medications, last adjustment was after her surgery in January. Reports that they increased her thyroid medication. Unclear when last checked. Endorsing 2 mild postoperative pain, queasiness. No other complaints or concerns. A/Ox4. Review of Systems Review of Systems: All systems reviewed & are unremarkable except as noted in HPI and below PMFSH Past Medical History Medical History Cataract Essential (primary) hypertension Gastroesophageal reflux disease History of miscarriage x5 Hyperlipidemia Hypothyroidism (acquired) Hypothyroidism, unspecified Intermittent acute porphyria syndrome Optic neuritis Osteopenia Rosacea Thrombocytopenia Vaginal delivery x1 Surgical History Surgical History H/O dilation and curettage X5 H/O: hysterectomy 12/09/15 History of colposcopy History of eye surgery 2019, for cataracts History of left knee replacement Dr Valverde- 02/23/23 Family History Family History Father Cerebrovascular accident Sibling Cerebrovascular accident Mother Acute myocardial infarction Other Hypertension Social History Social History Social History: Smoking packs per day: 1 Smoking cigarettes per day: 20.0 Years smoked: 3 Smoking pack-years: 3.00 Smoking status: Former smoker Second hand tobacco smoke exposure: No Additional smoking assessment comments: PT DENIES ALL FORMS OF TOBACCO USE Alcohol intake: current Drinks per week
--- NOTE | ~2023-07-14 | XR_ITS ---
EXAMINATION: [id number] DATE: 07/13/2023 09:37 INDICATION: Total right knee arthroplasty. Postop. TECHNIQUE: 2 views of right knee were obtained. COMPARISON: Right knee radiographs 05/31/2023 FINDINGS: There is a total right knee arthroplasty with patellar resurfacing in near-anatomic alignme nt. No fracture. There is gas in the knee joint and soft tissues, consistent with recent surgery. Ant erior skin isadora are noted. IMPRESSION: 1. Total right knee arthroplasty in near-anatomic alignment. Reviewed, dictated and finalized at location A. TMENT MAINTENANCE
[2023-07-14] MEDS: HYDROcodone/acetaminophen (*CRX) 5-325 MG TABLET 2 TAB PO ×3 (00:35→13:19)
[2023-07-14 01:25] VITALS: BP 114/57; PULSE 79; RESP 16; TEMP 36.1; O2SAT 99
[2023-07-14 04:55] VITALS: BP 114/57; PULSE 68; RESP 16; TEMP 36.6; O2SAT 96
[2023-07-14] MEDS: CYCLOBENZAPRINE HCL 10 MG TABLET PO ×2 (04:58→17:07)
[2023-07-14] MEDS: ceFAZolin 1 GM/NS 50 ML 1 GM/50 ML BAG IVPB (06:01)
[2023-07-14 07:00] LABS: Basophils Percent Auto 0.6 % (0.2-1.2); Eosinophils Percent Auto 0.3 % (0-4.4); Hematocrit 31.8 % (37.0-47.0); Hemoglobin 10.2 g/dL (12.0-15.0); Immature Granulocyte Absolute 0.02 K/mm3 (0.00-0.031); Immature Granulocyte Percent A 0.3 % (0-0.5); Lymphocytes Absolute Auto 0.92 K/mm3 (0.9-3.2); Lymphocytes Percent Auto 13.2 % (18.3-44.2); Mean Corpuscular HGB Conc 32.1 g/dl (32-36); Mean Corpuscular Hemoglobin 29.4 pg (26-34); Mean Corpuscular Volume 91.6 fl (80-100); Mean Platelet Volume 11.7 fl (7.4-10.4); Monocytes Absolute Auto 0.8 K/mm3 (0.1-0.6); Monocytes Percent Auto 11.7 % (2.6-8.5); Neutrophils Absolute Auto 5.2 K/mm3 (1.3-6.7); Neutrophils Percent Auto 73.9 % (45.5-73.1); Platelet Count Result 160 k/mm3 (150-375); Red Blood Count 3.47 M/mm3 (4.2-5.4); Red Cell Distribution Width 14.5 % (11.5-14.5)
[2023-07-14 07:18] LABS: Anion Gap 10 mmol/L (8-16); Blood Urea Nitrogen 11 mg/dL (7-17); Calcium 8.9 mg/dL (8.4-10.2); Carbon Dioxide 26 mmol/L (22-30); Chloride 102 mmol/L (98-107); Estimated CRCL calculation 73 ml/min; Estimated Glomerular Filt Rate > 60; Glucose 120 mg/dL (65-110); Potassium 3.7 mmol/L (3.4-5.0); Sodium 138 mmol/L (137-145)
[2023-07-14] MEDS: LEVOTHYROXINE SODIUM 88 MCG TABLET PO (07:28)
[2023-07-14 08:09] VITALS: BP 108/63; PULSE 80; RESP 20; TEMP 37.5; O2SAT 100
[2023-07-14] MEDS: FAMOTIDINE 20 MG TABLET PO ×2 (08:47→21:07)
[2023-07-14] MEDS: polyethylene glycoL 3350 17 GM POWD.PACK PO (08:47)
[2023-07-14] MEDS: SENNA/DOCUSATE SODIUM TABLET 2 TAB PO ×2 (08:47→17:07)
--- NOTE | 2023-07-14 10:10 | PM.PNORT ---
Progress Note: A&P Assessment and Plan (1) S/P total knee arthroplasty: Qualifiers: Laterality: right Qualified Code(s): Z96.651 - Presence of right artificial knee joint Code(s): Z96.659 - Presence of unspecified artificial knee joint Status: Acute Assessment and Plan: Patient is status post total knee arthroplasty right. The block has not worn off completely at this time. When that wears off she can go home. For some reason she states the knee gives way a bit despite locked should not of his quad. I will see her back 10 to 14 days for sutures out she has any changes or problems she will call discussed. Subjective Subjective Date/Time Seen: 07/14/23 10:10 Principal diagnosis: Osteoarthritis RIGHT knee Interval history: Patient is status post total knee arthroplasty right with minimal complaints he has some mild pain but overall doing well. Exam Narrative: On exam she wiggles her toes wounds clean very little in the way of swelling. Objective Data Vital Signs Vital Signs: Vital Signs - 24 hr 07/13/23 10:20 07/13/23 11:58 07/13/23 10:45 Temperature 98.5 F 96.4 F L Pulse Rate 74 78 Respiratory Rate 12 13 Blood Pressure 127/66 147/71 H Pulse Oximetry 97 96 Oxygen Delivery Room Air Room Air 07/13/23 11:15 07/13/23 12:52 07/13/23 16:08 Temperature 96.5 F L 96.7 F L Pulse Rate 71 67 Respiratory Rate 13 14 Blood Pressure 125/66 105/61 Pulse Oximetry 97 100 Oxygen Delivery Room Air 07/13/23 20:15 07/14/23 01:25 07/14/23 04:55 Temperature 96.7 F L 97 F L 97.8 F Pulse Rate 77 79 68 Respiratory Rate 16 16 16 Blood Pressure 115/71 114/57 L 114/57 L Pulse Oximetry 99 99 96 Oxygen Delivery 07/14/23 08:09 07/14/23 08:00 Temperature 99.5 F Pulse Rate 80 Respiratory Rate 20 Blood Pressure 108/63 Pulse Oximetry 100 Oxygen Delivery Room Air Intake/Output Intake/Output: Intake & Output 07/11/23 07/12/23 07/13/23 07/14/23 23:59 23:59 23:59 23:59 Intake Total 1540 870 Balance 1540 870 Meds/Results Medications: Active Medications Generic Name Dose Route Start Last Admin Trade Name Freq PRN Reason Stop Dose Admin Hydrocodone Bitart/Acetaminophen 2 tab 07/13/23 10:30 07/14/23 06:36 Hydrocodone/Acetaminophen (*Crx) 5-325 Mg Tablet PO 2 tab Q6H PRN Administration Pain Rated 7-10 Hydrocodone Bitart/Acetaminophen 1 tab 07/13/23 10:30 Hydrocodone/Acetaminophen (*Crx) 5-325 Mg Tablet PO Q4H PRN Pain Rated 4-6 Alendronate Sodium 70 mg 07/13/23 10:30 07/13/23 11:21 Alendronate Sodium 70 Mg Tablet PO Not Given WEEKLY CALEB Atorvastatin Calcium 40 mg 07/13/23 21:00 07/13/23 20:51 Atorvastatin 40 Mg Tablet PO 40 mg HS CALEB Administration Cyclobenzaprine HCl 10 mg 07/13/23 10:30 07/14/23 04:58 Cyclobenzaprine Hcl 10 Mg Tablet PO 10 mg Q8H PRN Administration Spasms Diphenhydramine HCl 25 mg 07/13/23 10:30 Diphenhydramine Hcl Inj 50 Mg/Ml Vial IV PUSH Q6H PRN Itching Famotidine 20 mg 07/13/23 10:30 07/14/23 08:47 Famotidine 20 Mg Tablet PO 20 mg Q12HR CALEB Administration Levothyroxine Sodium 88 mcg 07/14/23 06:30 07/14/23 07:28 Levothyroxine Sodium 88 Mcg Tablet PO 88 mcg DAILY@0630 CALEB Administration Miscellaneous Information 0 each 07/13/23 00:01 Lifitegrast [Xiidra] 5 % Dropperette = Non Form, Can Patient Use The Home Med? XX 08/12/23 00:00 CLARIFY CALEB Naloxone HCl 0.1 mg 07/13/23 10:30 Naloxone Hcl 0.4 Mg/Ml Vial IV PUSH Q2M PRN Opiate Reversal Non-Formulary Medication 1 drop 07/13/23 10:30 Lifitegrast [Xiidra] EACH EYE 08/12/23 10:29 BID CALEB Polyethylene Glycol 17 gm 07/13/23 10:30 07/14/23 08:47 Polyethylene Glycol 3350 17 Gm Powd.Pack PO 17 gm QAM CALEB Administration Rivaroxaban 10 mg 07/13/23 17:00 07/13/23 16:30 Rivaroxaban 10 Mg Tablet PO 07/24/23 17:01 10 mg
--- NOTE | 2023-07-14 11:12 | WPDANESPN ---
Anes - Prog Note Post-Op Date/Time: 07/14/23 11:12 Cardiovascular status: normal Respiratory status: normal Airway patency: baseline Mental status: baseline Post-Op hydration status: normal Vital Signs: Last Vital Signs Temp 37.5 C 07/14/23 08:09 Pulse 80 07/14/23 08:09 Resp 20 07/14/23 08:09 BP 108/63 07/14/23 08:09 Pulse Ox 100 07/14/23 08:09 O2 Del Method Room Air 07/14/23 08:00 O2 Flow Rate 6 07/13/23 09:35 Pain Score (VAS): 10/08 I/O: Intake & Output 07/13/23 07/14/23 07/14/23 23:59 07:59 15:59 Intake Total 650 150 720 Balance 650 150 720 Laboratory Tests 07/14/23 06:22 07/14/23 06:22 07/14/23 06:22 WBC 7.0 RBC 3.47 L Hgb 10.2 L D Hct 31.8 L MCV 91.6 MCH 29.4 MCHC 32.1 RDW 14.5 Plt Count 160 MPV 11.7 H Immature Gran % (Auto) 0.3 Neut % (Auto) 73.9 H Lymph % (Auto) 13.2 L [place] % (Auto) 11.7 H Eos % (Auto) 0.3 Baso % (Auto) 0.6 Lymph # (Auto) 0.92 [place] # (Auto) 0.8 H Eos # (Auto) 0.0 Baso # (Auto) 0.0 Abs Immat Gran (auto) 0.02 Absolute Neuts (auto) 5.2 Absolute Nucleated RBC 0.0 Nucleated RBC % 0.0 Sodium 138 Potassium 3.7 Chloride 102 Carbon Dioxide 26 Anion Gap 10 BUN 11 Creatinine 0.50 L Estim Creat Clear Calc 73 Estimated GFR > 60 Glucose 120 H Calcium 8.9 Post-procedural complaints: none Patient Feedback: Patient satisfied with anesthetic care.
[2023-07-14 12:11] VITALS: BP 149/74; PULSE 71; RESP 20; TEMP 37.5; O2SAT 100
[2023-07-14] MEDS: traMADol HCL (*CRX) 50 MG TABLET PO (17:07)
[2023-07-14] MEDS: RIVAROXABAN 10 MG TABLET PO (17:07)
[2023-07-14 20:00] VITALS: PULSE 96; RESP 16; O2SAT 97
[2023-07-14] MEDS: ATORVASTATIN 40 MG TABLET PO (21:07)
[2023-07-14 22:00] VITALS: BP 136/68; PULSE 96; RESP 16; TEMP 36.6; O2SAT 97
[2023-07-15] MEDS: CYCLOBENZAPRINE HCL 10 MG TABLET PO (03:53)
[2023-07-15] MEDS: HYDROcodone/acetaminophen (*CRX) 5-325 MG TABLET 2 TAB PO ×2 (03:53→13:52)
[2023-07-15] MEDS: LEVOTHYROXINE SODIUM 88 MCG TABLET PO (06:13)
[2023-07-15 06:49] VITALS: BP 139/68; PULSE 91; RESP 16; TEMP 37.1; O2SAT 97
--- NOTE | 2023-07-15 08:51 | PM.IMPN ---
Progress Note: A&P Assessment and Plan (1) S/P total knee arthroplasty: Qualifiers: Laterality: right Qualified Code(s): Z96.651 - Presence of right artificial knee joint Code(s): Z96.659 - Presence of unspecified artificial knee joint Status: Acute Assessment and Plan: ambulate with assistance and up to chair, use IS, pain management per primary, zofran PRN for nausea, monitor labs in AM bowel regimen: docusate/senna, polyethylene glycol (2) Hypothyroidism, unspecified: Qualifiers: Hypothyroidism type: acquired Qualified Code(s): E03.9 - Hypothyroidism, unspecified Code(s): E03.9 - Hypothyroidism, unspecified Status: Acute Assessment and Plan: Continue levothyroxine, check TSH (3) Essential (primary) hypertension: Code(s): I10 - Essential (primary) hypertension Status: Acute Assessment and Plan: Blood pressures reviewed 07/15 Continue home lisinopril Plan Home Meds/Chronic Conditions - all other home meds held, may resume at discharge Diet: regular GI Prophylaxis: famotidine DVT Prophylaxis: SCDs, Xarelto Lines: pIV Code Status: Full Code Subjective Date/time seen: 07/15/23 08:51 Interval history: 67-year-old female past medical history significant for hypertension, hyperlipidemia, hypothyroidism, acute intermittent porphyria syndrome presenting with knee pain and currently status post a right knee total arthroplasty 07/13. No overnight events noted. No chest pain or shortness of breath. No nausea, vomiting or diarrhea. No fevers or chills. Review of Systems Review of Systems: 12 point review of systems was assessed and was negative except as noted in the HPI Exam Narrative: General: No acute distress, alert and oriented per baseline HEENT: Atraumatic, normocephalic, mucous membranes moist CV: Regular rate and rhythm, S1, S2 Lungs: Clear to auscultation bilaterally, no rales or crackles noted, no wheezes, good air entry Abdomen: Soft, nontender, nondistended Extremities: Normal to inspection, some swelling noted bilateral knees, right greater than left, incision C/D/I Skin: No rashes noted, no lesions or wounds seen Psych: Euthymic, normal affect Objective Data Vital Signs Vital Signs: Vital Signs - 24 hr 07/14/23 12:11 07/14/23 22:00 07/14/23 20:00 Temperature 99.5 F 97.9 F Pulse Rate 71 96 96 Respiratory Rate 20 16 16 Blood Pressure 149/74 H 136/68 Pulse Oximetry 100 97 97 Oxygen Delivery Room Air 07/15/23 06:49 Temperature 98.8 F Pulse Rate 91 Respiratory Rate 16 Blood Pressure 139/68 Pulse Oximetry 97 Oxygen Delivery Intake/Output Intake/Output: Intake & Output 07/12/23 07/13/23 07/14/23 07/15/23 23:59 23:59 23:59 23:59 Intake Total 1540 1590 Balance 1540 1590 Meds/Results Medications: Active Medications Generic Name Dose Route Start Last Admin Trade Name Freq PRN Reason Stop Dose Admin Hydrocodone Bitart/Acetaminophen 2 tab 07/13/23 10:30 07/15/23 03:53 Hydrocodone/Acetaminophen (*Crx) 5-325 Mg Tablet PO 2 tab Q6H PRN Administration Pain Rated 7-10 Hydrocodone Bitart/Acetaminophen 1 tab 07/13/23 10:30 Hydrocodone/Acetaminophen (*Crx) 5-325 Mg Tablet PO Q4H PRN Pain Rated 4-6 Alendronate Sodium 70 mg 07/13/23 10:30 07/13/23 11:21 Alendronate Sodium 70 Mg Tablet PO Not Given WEEKLY CALEB Atorvastatin Calcium 40 mg 07/13/23 21:00 07/14/23 21:07 Atorvastatin 40 Mg Tablet PO 40 mg HS CALEB Administration Cyclobenzaprine HCl 10 mg 07/13/23 10:30 07/15/23 03:53 Cyclobenzaprine Hcl 10 Mg Tablet PO 10 mg Q8H PRN Administration Spasms Diphenhydramine HCl 25 mg 07/13/23 10:30 Diphenhydramine Hcl Inj 50 Mg/Ml Vial IV PUSH Q6H PRN Itching Famotidine 20 mg 07/13/23 10:30 07/14/23 21:07 Famotidine 20 Mg Tablet PO 20 mg Q12HR CALEB Administration
[2023-07-15] MEDS: SENNA/DOCUSATE SODIUM TABLET 2 TAB PO (09:36)
[2023-07-15] MEDS: traMADol HCL (*CRX) 50 MG TABLET PO (09:36)
[2023-07-15] MEDS: polyethylene glycoL 3350 17 GM POWD.PACK PO (09:37)
[2023-07-15] MEDS: LORATADINE 10 MG TABLET PO (09:37)
[2023-07-15] MEDS: FAMOTIDINE 20 MG TABLET PO (09:37)
[2023-07-15] MEDS: TRIAMCINOLONE ACET 0.1% OINT 15 GM TUBE 1 APPLIC TOPICAL (13:57)
[2023-07-15 14:11] VITALS: BP 153/80; PULSE 86; RESP 16; TEMP 36.8; O2SAT 100
--- NOTE | 2023-07-18 12:28 | PM.DS ---
DS: Admitting Diagnosis Discharge Date 07/15/23 Admitting Diagnosis Osteoarthritis Right Knee DS: Discharge Diagnosis Discharge Diagnosis Plan Right Total Knee Replacement DS: Summary Hospital Course Hospital Course: Patient underwent total knee arthroplasty right. She did okay postoperatively. She was slow to bit by the block she had which took some time to wear off. She was read released home. With anticipation of follow-up in 2 weeks for sutures out. She has any changes or problems she will call. Hydrocodone was given for pain. Xarelto for clotting. Status at Discharge Functional status at discharge: uses cane/walker Time Spent with Patient Time attestation: Total time spent providing and/or coordinating discharge services: Exam Narrative: On exam she can wiggle her toes she seemed to be able to walk. The incision was clean. Discharge Plan Discharge Attending physician on discharge: Ryann Patel Consulting providers: Adriana Castro; Wen Costa; Italo Hoskins; Reuben Mejia V.; Radha Lobo Discharging Clinician: Ryann Patel Patient Disposition: Home Health Service Activity: unlimited Diet: regular Wound Care Instructions: follow printed instructions Discharge Instructions: [facility] [address] [place] [address] POST-OPERATIVE DISCHARGE INSTRUCTIONS TOTAL KNEE ARTHROPLASTY 1. When resting, lie on back with leg elevated above heart to minimize swelling. Significant swelling could indicate a blood clot and if this occurs call the office (or go to the ER) to have a venous ultrasound. 2. Do exercise 5 times a day. 3. Do not sit with leg down except for meals. 4. Wound Care: Nursing will give additional dressings at discharge. Patient to change dressing at home 1 week from surgery, then maintain until seen in office. 5. May shower with dressing in place. 6. Follow weight bearing status instructions. IMPORTANT: Remember not to sit in the chair for more than 30 minutes at a time. As a rule, during the first 14 days after surgery, only sit in the chair to work on the chair knee bending stretch exercise, for meals or for use of the restroom. Sitting in the chair promotes significant swelling in the knee and leg which will make the knee stiff and more painful and which simulates having a blood clot in the veins of the leg. If this type of significant diffuse swelling occurs, an ultrasound at the hospital will be necessary to rule out a blood clot. Be up walking around with the walker for a few minutes every hour while awake and then rest laying on your back on the couch or in bed with your leg elevated on cushions or pillows. Do not rest in the chair. Patient Instructions: Antibiotic Form Stand Alone Forms: General Discharge Information, General Discharge Instructions Follow-up/Referrals: Ryann Patel MD [Physician] - Discharge Medications: New hydrocodone-acetaminophen 7.5-325 mg tablet 1 tablet PO Q4H PRN (Reason: pain) Qty: 40 0RF doxycycline hyclate 100 mg capsule 100 mg PO BID Qty: 20 0RF cyclobenzaprine 10 mg tablet 10 mg PO HS Qty: 20 0RF Continued cholecalciferol (vitamin D3) 50 mcg (2,000 unit) capsule 50 mcg PO DAILY Caltrate 600-D Plus Minerals 600 mg calcium- 800 unit-50 mg tablet 2 tablet PO DAILY omega 7-dck-kcm-fish oil [Fish Oil] 60-90-500 mg capsule 1,200 cap PO DAILY cetirizine 10 mg tablet 10 mg PO DAILY fluticasone propionate 50 mcg/actuation spray,suspension 2 spray NASAL BID Rx Instructions: administer into each nostril PreserVision AREDS-2 250-90-40-1 mg capsule 1 tablet PO BID multivitamin Tablet 1 tablet PO DAILY Hair, Skin and Nails (biotin) 10,000 mcg tablet,chewable 10,000 mcg PO DAILY triamcinolone acetonide 0.1 % Ointment 1 applic TOPICAL
== END 2023-07-15 14:52 | disposition home or self-care (01) ==
LOC: ANHSURGERY 16:18 → ANH3MEDSUR 16:18
PROVIDERS: Student in an Organized Health Care Education/Training Program; Admitting Provider Orthopaedic Surgery; PCP Family Medicine; Visit Provider Orthopaedic Surgery
PROC: (CPT 27447; principal; 2023-07-13 07:30)
DX: M17.11 Unilateral primary osteoarthritis, right knee (principal); G89.18 Other acute postprocedural pain; I10 Essential (primary) hypertension; E78.5 Hyperlipidemia, unspecified; K21.9 Gastro-esophageal reflux disease without esophagitis; E03.9 Hypothyroidism, unspecified; E80.21 Acute intermittent (hepatic) porphyria; H46.9 Unspecified optic neuritis; M85.80 Other specified disorders of bone density and structure, unspecified site; L71.9 Rosacea, unspecified; D69.6 Thrombocytopenia, unspecified; Z87.891 Personal history of nicotine dependence; Z82.49 Family history of ischemic heart disease and other diseases of the circulatory system; Z79.52 Long term (current) use of systemic steroids; Z79.899 Other long term (current) drug therapy
CPT/HCPCS: 27447; 64447; 36415; 73560; 80048; 80307; 82040; 82565; 82947; 83036; 84443; 85025; 86850; 86900; 86901; 87081; 93005; 97110; 97116; 97161; 97165; 97530; 97535; A9270; C1713; C1776; G0378; J0171; J0690; J1100; J2250; J2270; J2405; J2704; J2795; J3010; J3370; J7030; J7120

== ENCOUNTER → 2023-08-23 14:09 | Outpatient (CLI) | payer MEDICARE, SELFPAY ==
--- NOTE | ~2023-08-23 | XR_ITS ---
EXAM: XR knee RT 3V DATE: 08/23/2023 14:36 HISTORY: Z96.651 - Presence of right artificial knee joint . COMPARISON: 05/31/2023. FINDINGS: Decreased mineralization. No fracture or dislocation. No lytic or blastic lesion. Uncompli cated appearing right total knee arthroplasty hardware. Moderate volume joint fluid. No erosion or pe riosteal change. Soft tissues within normal limits. IMPRESSION: Status post right total knee arthroplasty, no radiographic evidence of hardware related c omplication. Moderate joint effusion. Reviewed, dictated and finalized at location K. WEAVER IMPRESSION: Status post right total knee arthroplasty, no radiographic evidence of hardware related complication. Moderate joint effusion.
== END ==
PROVIDERS: PCP Family Medicine; Visit Provider Orthopaedic Surgery
DX: Z96.651 Presence of right artificial knee joint (principal); M25.461 Effusion, right knee
CPT/HCPCS: 73562

== ENCOUNTER 2024-04-24 15:02 | Outpatient (CLI) | payer MEDICARE, SELFPAY ==
--- NOTE | ~2024-04-24 | MM_ITS ---
EXAMINATION: MM screening [facility] BI w ema HISTORY: Screening TECHNIQUE: Craniocaudal and mediolateral oblique 3-D tomosynthesis images were obtained and synthetic 2-D images were generated. CAD analysis was submitted and interpreted. COMPARISON: Comparison to multiple prior studies sequentially, with oldest reviewed study dated 12/23. BREAST PARENCHYMAL COMPOSITION: Not dense: There are scattered areas of fibroglandular density. FINDINGS: There is no evidence of suspicious mass, calcification, or architectural distortion to sugg est malignancy in either breast. There has been no suspicious interval change. IMPRESSION: 1. No mammographic evidence of malignancy. 2. Recommend routine screening mammography in one year. BI-RADS Category 1: Negative Reviewed, dictated and finalized at location B.
== END 2024-04-24 15:03 ==
LOC: MICIMG 15:03
PROVIDERS: PCP Family Medicine; Visit Provider Family Medicine
DX: Z12.31 Encounter for screening mammogram for malignant neoplasm of breast (principal)
CPT/HCPCS: 77063; 77067

== ENCOUNTER 2024-08-10 09:05 | Outpatient (CLI) | payer MEDICARE, SELFPAY ==
--- NOTE | ~2024-08-10 | DEXA_ITS ---
Bone Density Report Name: TOSHA PARK Age: 68 Sex: Female Ethnicity: White Date of : 1955 Indication: postmenopausal; screening for osteoporosis; hysterectomy; Referring Provider: CORRIE LEIJA Study: Bone densitometry was performed. Exam Date: August 10, 2024 Accession number: [id number] Bone Density: Region BMD T-score Z-score Classification AP Spine(L1-L4) 0.938 -1.0 0.9 Normal Femoral Neck (Left) 0.651 -1.8 -0.2 Osteopenia Total Hip (Left) 0.880 -0.5 0.8 Normal Femoral Neck (Right) 0.621 -2.1 -0.5 Osteopenia Total Hip (Right) 0.877 -0.5 0.8 Normal Total Hip Mean 0.878 -0.5 0.8 Normal World Health Organization criteria for BMD impression classify patients as: Normal (T-score at or above -1.0), Osteopenia (T-score between -1.0 and -2.5), or Osteoporosis (T-score at or below -2.5). 10-year Fracture Risk(1): Major Osteoporotic Fracture 11% Hip Fracture 1.9% Reported Risk Factors: [place] (), Neck BMD=0.621, BMI=24.1 (1) FRAX(R) Version 3.08. Fracture probability calculated for an untreated patient. Fracture probability may be lower if the patient has received treatment. Previous Exams: Region Exam Age BMD T-score BMD Change BMD Change Date g/cm2 vs Baseline vs Previous AP Spine (L1-L4) 08/10/2024 68 0.938 -1.0 -0.022 (-2.3%) -0.022 (-2.3%) 02/08/2022 66 0.960 -0.8 Total Hip(Left) 08/10/2024 68 0.880 -0.5 0.065 (7.9%)* 0.065 (7.9%)* 02/08/2022 66 0.815 -1.0 Total Hip(Right) 08/10/2024 68 0.877 -0.5 0.033 (3.9%)* 0.033 (3.9%)* 02/08/2022 66 0.844 -0.8 *Denotes significance at 95% confidence level, LSC for AP Spine = 0.022 g/cm2, LSC for Total Hip = 0.027 g/cm2 Clinical Information Provided by Patient: Has used the following medications: Vitamin D, Calcium Has the following medical conditions: Hysterectomy Patient maximum height was 62.6 Menopause Age: 60 No regular weight bearing exercise Drinks caffeinated beverages Onset of menses at age 16 Number of children 1 Impression: The patient has low bone mass, based on the Right Femoral Neck T-score. The patient has an estimated ten-year risk of hip fracture of 1.9% and an estimated ten-year risk of major fracture of 11%, based on the WHO FRAX algorithm. No significant bone loss was observed. Discussion: BONE DENSITY IS LOW AT ONE OR MORE SKELETAL SITES. This patient's lowest T-score is low at one or more skeletal sites. It meets the World Health Organization's (WHO) criteria for ?low bone mass? (T-score between -1.0 and -2.5). The patient's 10-year risk of fracture as calculated by FRAX is less than the threshold where pharmacological therapy is recommended by the National Osteoporosis Foundation (NOF). However, all treatment decisions require clinical judgment and consideration of individual patient factors, including patient preferences, comorbidities, previous drug use, risk factors not captured in the FRAX model (e.g., frailty, falls, vitamin D deficiency, increased bone turnover, interval significant decline in bone density) and possible under or overestimation of fracture risk by FRAX. The patient should follow a healthful lifestyle (good nutrition with adequate calcium and vitamin D, and appropriate weight-bearing exercise). Follow-Up: Consider repeating this study in 2 to 3 years to reassess this patient's status, or sooner if there is some new clinical indication. Reported by: LANDON on 08/10/2024 9:58:00 AM. Reviewed, dictated and finalized at location A. JENNIE
== END 2024-08-10 09:06 | disposition home or self-care (01) ==
LOC: ANHIMG 09:09
PROVIDERS: PCP Family Medicine; Visit Provider Student in an Organized Health Care Education/Training Program
DX: Z78.0 Asymptomatic menopausal state (principal); M85.852 Other specified disorders of bone density and structure, left thigh; M85.851 Other specified disorders of bone density and structure, right thigh
CPT/HCPCS: 77080

== ENCOUNTER 2025-04-30 10:02 | Outpatient (CLI) | payer MEDICARE, SELFPAY ==
--- NOTE | ~2025-04-30 | MM_ITS ---
EXAMINATION: MM screening [facility] BI w ema HISTORY: Screening TECHNIQUE: Craniocaudal and mediolateral oblique 3-D tomosynthesis images were obtained and synthetic 2-D images were generated. CAD analysis was submitted and interpreted. COMPARISON: Mammograms from 04/24/2024 and 03/16/2023 BREAST PARENCHYMAL COMPOSITION: There are scattered areas of fibroglandular density. FINDINGS: There is no evidence of suspicious mass, calcification, or architectural distortion in either breast to suggest malignancy. There has been no significant interval change. IMPRESSION: 1. No mammographic evidence of malignancy. Recommend routine screening mammography in one year. BI-RADS Category 1: Negative Reviewed, dictated and finalized at location Q. IMPRESSION: 1. No mammographic evidence of malignancy. Recommend routine screening mammogra phy in one year. BI-RADS Category 1: Negative
== END 2025-04-30 10:03 | disposition home or self-care (01) ==
LOC: MICIMG 10:02
PROVIDERS: PCP Family Medicine; Visit Provider Student in an Organized Health Care Education/Training Program
DX: Z12.31 Encounter for screening mammogram for malignant neoplasm of breast (principal)
CPT/HCPCS: 77063; 77067